=== PATIENT | female | born 1945 | race Caucasian/White ===

== ENCOUNTER 2017-12-17 07:00 | Inpatient (IN) | payer MEDICARE, OTHER ==
--- NOTE | 2017-12-04 13:10 | NUR ---
PATIENT HERE TODAY FOR PREADMISSION APPOINTMENT. PATIENT IS SCHEDULED TO HAVE A RIGHT TOTAL KNEE REPLACEMENT ON 12/17/17. THE PATIENT STATES HER [facility] WILL BE HERE TO TRANSPORT HER HOME AND TO HER APPOINTMENTS. SHE HAS A PRE-OP APPOINTMENT WITH PHYSICAL THERAPY ON Sunday12/07/17 AT THE [facility]. THIS IS WHERE SHE WOULD LIKE TO HAVE PHYSICAL THERAPY AFTER SURGERY. THE PATIENT STATES SHE HAS [address] INTO THE HOME AND A GRAB BAR YOU GO INTO THE HOME. THERE ARE NO STAIRS INSIDE THE HOME. SHE HAS A WALK IN SHOWER. SHE ALSO ALREADY HAS A SHOWER CHAIR, HAND HELD SHOWER HEAD, TOILET SEAT RISER (IF NEEDED) AND A FRONT WHEELED WALKER. PATIENT WAS INSTRUCTED TO BRING HER CPAP MACHINE THE MORNING OF SURGERY AND HER WILL BRING IN HER WALKER WHEN SHE GET TO THE MEDICAL FLOOR. THIS INFORMATION WILL BE FAXED TO DR CUEVAS OFFICE AND TO BENNY PLANNING FOR FURTHER FOLLOW UP.
[~2017-12-17] VITALS: Ht 162.6 cm; Wt 79.4 kg
--- OUTSIDE RECORDS SUMMARY | ~2017-12-17 | XMS | Clinical Summary ---
Demographics + + + | Address | [address] | | | [place] [address] | + + + | Home Phone | | + + + | Preferred Language | Unknown | + + + | Marital Status | Single | + + + | Restorationist Affiliation | Unknown | + + + | Race | Unknown | + + + | Ethnic Group | Other Race | + + + Author + + + | Author | [facility] | + + + | Organization | [facility] | + + + | Address | Unknown | + + + | Phone | Unavailable | + + + Care Team Providers + +------+ + | Care Grades 9 Thru 12 Visiting Teacher Name | Role | Phone | + +------+ + PP | Unavailable | + +------+ + Source Comments LULÚ is fully live on both [facility] and [facility] Allergies Not on File Current Medications Not [...]
[~2017-12-17 07:00] MED LIST: CELEBREX200 MG PO; FLUOXETINE HCL20 M1 PO; LEVOTHYROXINE150 MCG PO; LISINOPRIL20 MG PO; LOVASTATIN40 MG PO; MIRAPEX0.25 MG PO; MULTIVITAMINS1 EAC8 PO; OMEPRAZOLE20 MG PO; TOPROL XL25 MG PO; TRIAMTERENE-HC1 EAC3 PO
--- NOTE | 2017-12-17 09:24 | NUR ---
PT SITTING UP IN BED-ALERT, ORIENTED AND SUPPORTED BY HER . BOTH SEEMED INFORMED AND PREPARED. EXTENDED A BLESSING STAFF CAME TO GET IV STARTED. WILL FOLLOW NEEDED
--- NOTE | 2017-12-17 10:34 | NUR ---
12/17/17 1034 Urmila Stone PATIENT WAKES RAPIDLY, OPENS EYES AND REMOVES ORAL AIRWAY UPON RN INSTRUCTION. NASAL AIRWAY IS REMOVED BY RN. PT DENIES PAIN AND IS UNABLE TO MOVE FEET @ THIS TIME.
--- NOTE | 2017-12-17 11:15 | NUR ---
PT ARRIVED FROM PACU. PT AWAKE AND RESPONDING APPRORIATLY TO QUESTIONS. PT ON 2L O2 NC, WEANED TO 1L. PT DENIES PAIN AND NAUSEA. SPINAL LEVEL T-12. AT BEDSIDE. SCD'S AND GUILLERMO STOCKINGS ON, CRYO CUFF IN PLACE. PT INFOMRED OF PLAN OF CARE AND VOIDING EXPCTATIONS. PT VERBALIZES UNDERSTANDING AND STATES HER QUESTIOSN HAVE BEEN ANSWERED. BED RAILS UP. CALL LIGHT WITHIN REACH.
--- NOTE | 2017-12-17 13:00 | NUR ---
VITALS TAKEN ORDERED POST OP. PT AWAKE IN ROOM. ROOM AIR TRIAL ATTEMPTED. PT DROPS TO 89% ON ROOM AIR. PT REMAINS ON 1 L NC AND MAINTAINS O2 ABOVE 96% ON 1 L NC. PT EATING CLEARS AND DENIES NAUSEA. PT DENIES PAIN. SPINAL LEVEL NOW AT L2. PT ABLE TO MOVE LEFT FOOT SLIGHTLY BUT NOT RIGHT AT THIS TIME. INSTRUCTIONS ON USE OF INCENTIVE SPIROMETER GIVEN. PT DEMONSTRATES USE AND VERBALIZES UNDERSTANDING OF USING THIS DEVICE OFTEN. BED RAISL UP. CALL [facility] WITHIN REACH. WATER REFILLED FOR PT. PT STATES SHE HAS NO ADDITIONAL REQUESTS OR COMPALINTS AT THIS TIME. CRYO CUFF, SCD'S, AND HEEL PROTECTORS REMAIN ON.
--- NOTE | 2017-12-17 13:08 | NUR ---
PT REQUESTS CRACKERS TO EAT. PT TOLERATING PO FUIDS AND JELLO. PT DENIES NAUSEA. CRACKERS AND PUDDING PROVIDED. PT STATES NO ADDITIONAL REQUESTS OR COMPLAINTS AT THIS TIME. CALL LIGHT WITHIN REACH. BED RAILS UP.
--- NOTE | 2017-12-17 13:44 | NUR ---
THIS RN CALLED TO BEDSIDE BY PHYSICAL THERAPIST WHO STATES PTS BLADDER IS LEAKING WITH MOVEMENT. PT REPOSITIONED WITH TWO PERSON ASSIST. AUGUSTINA CARE DONE. DEPENDS APPLIED, AND CHUX PLACED UNDER PT. PT UP TO CHAIR AND WORKING WITH PT. PT DENIES PAIN OR NAUSEA WITH EFFORTS. NO REQUESTS OR COMPLAINTS AT THIS TIME.
--- NOTE | 2017-12-17 14:01 | NUR ---
4TH HOURLY VITALS TAKEN. PT UP IN CHAIR. CRYO CUFF AND 1L O2 BY NC IN PLACE. PT DENIES PAIN AND NAUSEA AND REQUESTS SOME MORE CRACKERS (PROVIDED REQUESTED). VITALS TAKEN. ROOM AIR TRIAL BEGAN. PT MAINTAINING O2 ABOVE 96% ON ROOM AIR AFTER 10 MINUTES. PT LEFT ON ROOM AIR. CALL LIGHT WITHIN REACH. AT CHAIR SIDE. FEET ELEVATED. PT STATES NO ADDITIONAL REQUESTS OR COMPLAINTS AT THIS TIME.
--- NOTE | 2017-12-17 14:15 | NUR ---
PT HAD SMALL INCONT. WHILE WORKING WITH PHYICAL THERAPY, BLADDER SCANNED FOR 367ML, PT REPORTS NO URGE TO VOID AT THIS TIME. WILL MONITOR AND RE-SCAN IN ONE HOUR
--- NOTE | 2017-12-17 15:00 | NUR ---
PATIENT UP TO BSC FROM CHAIR WITH 2 PERSON ASSIST WITH FWW. ICE IN CRYO. CALL BUTTON IN REACH. RN IN ROOM. NO OTHER NEEDS AT THIS TIME.
--- NOTE | 2017-12-17 15:12 | NUR ---
TYLENOL DUE. PT DUE TO VOID. PT UP TO [facility] WITH 2 PERSON ASSIST. CRYO CUFF ICE REFILLED. PT CONTINUES TOD STEPHANE PAIN AND NAUSEA. SPINAL RESOVLED WITH MINIMAL FEELING AND MOVMENT IN BLE. PT TRANSFERED FROM COMOD BACK TO BED, UNABLE TO VOID. BLADDER SCAN FINDS 301ML. PT LEAKS WITH TRANSFERE AND CHUX IS FOUND TO BE WET. NEW CHUX APPLIED. NEW DEPENDS APPLIED. HEEL PROTECTORS IN PLACE. CRYO CUFF IN PLACE. SCD'S REATTACHED. PT REPORTS NO PAIN WITH ACTIVITY. BED RAILS UP. CALL LIGHT WITHIN REACH. AT BEDSIDE.
--- NOTE | 2017-12-17 16:51 | NUR ---
THIS RN TO BEDSIDE FOR AFTERNOON MEDICATIONS. PT REQUESTS TO GET UP TO [facility]. PT TRANSFERED TO [facility] WITH 2 PERSON ASSIST. MEDICATIONS GIVEN ORDERED (SEE MAR). PT TRANSFERED TO CHAIR FOR DINNER, 2 PERSON ASSIST. PT UNABLE TO EMPTY BLADDER. ABLE TO VOID 75ML WITH 267ML REMAINING (OBTAINED WITH BLADDER SCAN. MD NOTIFIED. PT EATING DINNER. CRYO CUFF IN PLACE. PULSE OX IN PLACE. PT CONTINUES TO DENY PAIN AND NAUSEA. AT BEDSIDE. CALL LIGHT WITHIN REACH.
--- NOTE | 2017-12-17 17:11 | NUR ---
MD STATES TO CONTINUE WATCHING PT AT THIS TIME AND ALLOW HER TO CONTINUE TO ATTEMPT TO VOID UNLESS BLADDER SCAN REACHES 500ML AT WHICH TIME ORDER FOR BROWNLEE CATHETER CAN BE ORDERED.
--- NOTE | 2017-12-17 17:39 | NUR ---
PATIENT SITTING UP IN CHAIR. FRESH ICE WATER GIVEN. PATIENT WASHED FACE AND HANDS. ICE IN CRYO. CALL BUTTON IN REACH. NO OTHER NEEDS AT THIS TIME.
--- NOTE | 2017-12-17 17:58 | NUR ---
PT HERE AFTER RIGHT TKA. SPINAL RESOLVED. PT DENIES NAUSEA. PT REPORTED 2/10 BREAKTHROUGH PAIN AT 1800, MORPHINE GIVEN. DIET ADVANCED TO CARDIAC DIET. PT VOIDING INVOLUNTARILY, DEPENDS AND CHUX IN PLACE. MD AWARE AND STATES TO CONTINUE TO MONITOR AND ENCOUAGE PT TO VOID (BROWNLEE ORDER IF MORE THAN 500ML IN BLADDER SCAN). LAST BLADDER SCAN WAS 267ML. CRYO CUFF, SCD'S, PULSE OX, AND GUILLERMO HOSE IN PLACE. DURAMORPH SPINAL COMPLETE TOMORROW MORNING AT 0956, TOWER ATTENDANT ORDERS IN PLACE UNTIL THEN. PIV IN RIGHT FORARM, INFUSING D5 NS +20K AT 125ML/HR. PT WEARS CPAP AT NIGHT.
--- NOTE | 2017-12-17 18:40 | NUR ---
PT CALL LIGHT ON. THIS RN RESPONDS. PT STATES CONCERNS ABOUT NOT RECIVEING HER EVENING MEDS. PHARMACIST CONTACTED AND IS VISITING WITH PT.
[2017-12-17] MEDS ORDERED: METOPROLOL TART25 MG PO (18:44)
--- NOTE | 2017-12-17 20:15 | NUR ---
ASSISTED PATIENT TO USE THE BEDSIDE COMMODE AND BACK TO BED USING WALKER. PATIENT TOLERATED WELL.SCD CRYO HEEL PROTECTOR ANND CONTINUOUS PULSE OXIMETRY ARE BACK ON. CALL LIGHT WITHIN REACH. NO OTHER NEEDS OF THIS TIME.
--- NOTE | 2017-12-17 22:14 | NUR ---
no c/o pain, R knee good cmc, tedhose, scd, heel protector, cryocuff in place. sl patent, Cooperative with assessment, no c/o pain or n/v. Watching tv.
--- NOTE | 2017-12-17 22:43 | NUR ---
up tp bds with fww and one assist, tolerated well, voided dark yellow urine, back to bed, no c/o pain. medicated wtih benadryl 25mg po c/o itching.
--- NOTE | 2017-12-18 00:09 | NUR ---
EYES CLOSED, NO RESP DISTRESS. RESTING, NO FURTHER C/O ITCHING OR PAIN, R KNEE CRYOCUFF, SCDS, HEEL PROTECTOR, GUILLERMO HOSE IN PLACE.
--- NOTE | 2017-12-18 00:42 | NUR ---
medicated with second dose of 25mg of Benadryl per itching, cryocuff kenneth padgett, no c/o pain, good cms
--- NOTE | 2017-12-18 03:19 | NUR ---
PT UPT O BSC WITH ONE ASSIST AND FWW, VOIDED, DARK YELLOW URINE, TOLERATED WELL, BACK TO BED WITH MINIMUM OF ASSIST. RK GOOD CMS, CRYOCUFF, GUILLERMO HOSE, SCDS, HEEL PROTECTOR INPLACE. NO C/O APIN OR N/V, NO FURTHER C/O ITCHING
--- NOTE | 2017-12-18 05:54 | NUR ---
Pt currently awake, up to bsc several times this hisft. uses 1 person assist and fww. tolerated well. has been medicated ATC with scheduled Tylenol 1000mg po. Cont pulse ox in place, izzy hose, heel protectors, scds, and cryocuff to rk. R leg karla wrap dressing in place. good CMS r leg. Lab in room drawing blood. Pt denies c/o n/v, no further c/o itching, no further requests
--- NOTE | 2017-12-18 08:28 | NUR ---
THIS RN CALLED TO ROOM BY MARKETING DEVELOPMENT SPECIALIST BECAUSE PT IS REPORTING PAIN. PT RATES HER PAIN AT 4"/10 AND CLIMBING" (SEE MAR FOR MEDICATION GIVEN). PT UP IN RECLINER AND WORKING WITH MARKETING DEVELOPMENT SPECIALIST'S. PT REPORTS NO OTHER REQUESTS OR COMPLAINTS AT THIS TIME. CALL LIGTH WITHIN REACH.
--- NOTE | 2017-12-18 10:15 | NUR ---
MORNING ASSESSMENT DUE. PT REPORTS IMPROVEMENT IN HER PAIN, NOW / BUT IS CONCERNED ABOUT IT COMEING BACK DURING PHYSICAL THERAPY. MEDCIATIONS GIVEN (SEE MAR). PAIN MEDICATION GIVEN IN ANTICIPATION OF PHYSICAL THERAPY. PT DENIES NAUSEA AND ITCHING. PT VOIDING WELL AND TOELRATING PO WITHOUT ISSUE. PT UP TO RECLINER. FEET ELVATED. CRYO CUFF IN PLACE. NEW ICE IN CRYO CUFF. MORNING ASSESSMENT DONE. METOPROLOL AND HYDROCHLOROTHIAZIDE HELD R/T BP OF 100/45 (58) AND HR OF 60 (REGULAR RATE AND RHYTHEM). PT REQUESTS A SHOWER. PLAN MADE FOR SHOWER. PT STATES SHE HAS NO ADDITIONAL REQUESTS OR COMPLAINTS AT THIS TIME. CALL LIGHT WITHIN REACH.
--- NOTE | 2017-12-18 10:45 | NUR ---
INFOMRED OF HELD MEDICATIONS. STATES THIS DECISION IS CORRECT FOR NOW AND TO CONTINUE TO MONITOR VITAL SIGNS
--- NOTE | 2017-12-18 11:04 | NUR ---
PT CALL LIGHT ON. ARTIFICIAL FLY TIER RESPONDS TO HELP PT BACK FROM REST ROOM. THIS RN RESPONDS WELL. PT REPORTS INCREASING PAIN WITH MOVEMENT NOW 01/29. PT REQUESTS TO TITRATE PAIN MEDICATION UP TO MAXIMUM DOSE. ADDITIONAL 5MG OF OXYCODONE GIVEN (SEE MAR). PT BACK TO CHAIR. CRYOCUFF IN PLACE. WATER PROVIDED. NOW AT BEDSIDE. PT STATES SHE HAS CHANGED HER MIND AND WOULD PREFER TO WAIT TO SHOWER BACKED ON RN RECCOMENDATIONS TO KEEP WOUND DRY AND FOR CONVIENCE. PT STATES SHE HAS NO ADDITIONAL REQUESTS OR COMPLAINTS AT THIS TIME. FOCUSED ASSESSMENT DONE. CALL LIGHT WITHIN REACH. FEET ELEVATED.
--- NOTE | 2017-12-18 11:14 | NUR ---
VITALS TAKEN. BP NOW 143/64 (84), HR 55. INFOMRED. WOUND ASSESSMENT AND CMS CHECK PERFOMRED. DRESSING CDI. CRYO CUFF IN PLACE. CMS WNL.
--- NOTE | 2017-12-18 11:23 | NUR ---
MD STATES TO GIVEN HCTZ NOW BUT CONTINUE TO HOLD METOPROLOL R/T LOW HR OF 55. MEDICATION GIVEN ORDERED (SEE MAR). PT UP WITH PT WALKING IN THE PEÑA. NO REQUESTS OR COMPLAINTS AT THIS TIME.
--- NOTE | 2017-12-18 13:10 | NUR ---
THIS RN INFORMED BY ANOTHER RN (PRIYA HURTADO), THAT PT CONTINUES TO REPORT 4/10 PAIN THAT IS NOT TOLERABLE. MD CALLED. MD ORDERS ADDITIONAL PAIN COVERAGE. ORDER PLACED AND PHARMACY CONTACED.
--- NOTE | 2017-12-18 13:28 | NUR ---
PLACED HOLD ON SCHEDULED TYLENOL FOR NOW, UNTIL ABLE TO ADDRESS WITH DUE TO TYLENOL IN CAVALIER WILL EXCEED MAX DAILY DOSE TOTAL.
--- NOTE | 2017-12-18 13:50 | NUR ---
PT REPORTING ITCHING. INFOMRED. ORDER PLACED.
--- NOTE | 2017-12-18 13:57 | NUR ---
PT LAYING IN BED, RESTING UP FOR P.T. JUST STAYED A MOMENT, SAID SHE SLEPT WELL, BUT WAS ITCHING FROM ANESTHESIA. PT HAS RECEIVED BENEDRYL, I TOLD HER I WOULD LET HER RN KNOW. EXTENDED A BLESSING, GAVE INFO TO PRIYA SPRING.
--- NOTE | 2017-12-18 14:04 | NUR ---
PATIENT RELAXING IN BED, IN ROOM. VITALS DONE, CRYO REFILLED. PATIENT IS ITCHY, RN PEEKED IN TO TALKM TO PATIENT ABOUT BENEDRYL. CALL LIGHT IN REACH. NO OTHER NEEDS.
--- NOTE | 2017-12-18 14:42 | NUR ---
BENEDRYL ORDER VERIFIED BY PHARAMCY. BROUGHT TO PT WHO CONTINUES TO REPORT ITCHING. MEDICATION GIVEN (SEE MAR) PT REQUESTS ASSISTANCE WITH USING RESTROOM. PT TRANSFERED TO TOILET/COMODE WITH STAND BY ASSIST. PT VOIDS WITHOUT DIFFICULTY AND TRANSFERES BACK TO CHAIR WITH OUT INCIDENT. CRYO CUFF REAPPLIED. BELONGING AND CALL LIGHT WITHIN REACH. PT WORKING ON PHONE. NO ADDITIONAL REQUESTS OR COMPLAINTS AT THIS TIME.
--- NOTE | 2017-12-18 15:50 | NUR ---
PT RETURNED FROM WORK WITH PHYSICAL THERAPY. ASSESSMENT AND PAIN MEDICATION DUE. PT REPORTS 3/10 PAIN AND DENIES NAUSEA. PT VOIDING WELL AND AMBULATING WITH ONE PERSON STAND BY ASSIST AND MINIMAL DIFFICULTY. PAIN MEDICATION TIMES WRITTEN ON WHITE BOARD FOR PT TO FOLLOW ALLONG WITH WHEN ADDITIONAL MEDICATION CAN BE TAKEN. MEDICATION GIVEN (SEE MAR). PT BACK TO CHAIR. CRYO CUFF, SCD'S AND GUILLERMO HOSE IN PLACE. HEAL PROTECTORS OFF AT THIS TIME BECUASE HEALS HANG OF END OF FEET REST. PT WORKING ON PHONE. NO REQUESTS OR COMPLAINTS AT THIS TIME. ZECHARIAH LIGHT WITHIN REACH. AT BEDSIDE.
--- NOTE | 2017-12-18 16:44 | NUR ---
PATIENT IS VERY HAPPY HE FINALLY HAD A LG BM. THIS EXTRUSION DIE CORRECTOR 1 PERSON ASSIST FOR 2 LAPS AND BACK TO BED. DR QUAN IN TO SEE PATIENT. CALL LIGHT IN REACH.
--- NOTE | 2017-12-18 17:34 | NUR ---
PT ADVANCING IN CARE TODAY. PT REPORTS 1-5/10 PAIN, PRN PAIN MEDICATION GIVEN. PT DENIES NASUEA AND VOIDS WITHOUT ISSUE. PT REPORTS ITCHING, PRN BENADRYL GIVEN. PT 1 PERSON STAND BY ASSIST WITH FWW. PT AMBULATED WITH PHYSICAL THERAPY X2 AND ALSO IN ROOM. PT ADHERING TO CARDIAC DIET. CPAP USED AT NIGHT. CRYO, SCD'S, GUILLERMO HOSE. HEEL PROTECTORS IN PLACE. DRESSING CDI. METOPROLOL HELD TODAY R/T LOW BP AND HR. PT VERBALIZES UNDERSTANDING OF PLAN AND IS PARTICIPATING IN CARE.
--- NOTE | 2017-12-18 17:50 | NUR ---
PATIENT SITTING IN CHAIR FINISHING DINNER. IN ROOM. 1 PERSON ASSIST TO BATHROOM AND BACK TO BED. VITALS I/O'S DONE. SCD'S ON CRYO FILLED CALL LIGHT IN REACH. NO OTHER NEEDS AT THIS TIME.
--- NOTE | 2017-12-18 17:55 | NUR ---
PT LIGHT ON. PT REQUESTS PAIN MEDICATION FOR 4/10 PAIN IN RIGHT KNEE. PT STATES SHE HAS BEEN DOING HER "QUAD EXERCISES." NORCO GIVEN (SEE MAR). PT IN BED WATCHING TV AND RESTING. BED RAILS UP. CALL LIGHT WITHIN REACH. CRYO CUFF, SCD'S, GUILLERMO VICTORINA, AND HEEL PROTECTORS IN PLACE. PT STATES NO ADDITIONAL REQUESTS OR COMPLAINTS AT THIS TIME.
--- NOTE | 2017-12-18 18:41 | NUR ---
PT CALL LIGHT ON. PT REPORST 5/10 WORSENING PAIN, 3/10 BEING TOLERABLE. PT REPORTS "I NODDED OFF TO SLEEP AND THE PAIN WOKE ME UP." MD CALLED. MD STATES TO INCREASE NORCO DOSE TO 1-2 TABLETS INSTEAD OF 1 Q 4HOURS PRN. ORDER CHANGED IN DEC. PHARMACY CONTACTED. 2ND TABLET OF NORCO GIVEN. PT STATES "THANKS" FOR ACTION TAKEN. PT RESTING IN BED. NO ADDITIONAL REQUESTS OR COMPLAINTS AT THIS TIME. BED RAILS UP. CALL LIGHT WITHIN REACH. CRYO CUFF, SCD'S, GUILLERMO HOSE.AND HEAL PROTECTORS IN PLACE.
--- NOTE | 2017-12-18 19:15 | NUR ---
BEDSIDE REPORT RECEIVED FROM PRIYA SPRING. PT AWAKE IN BED, STATES PAIN IS 4/10 AT THIS TIME. DRESSING ON RIGHT KNEE CLEAN DRY AND INTACT, CRYO CUFF ON, SCDS, GUILLERMO HOSE, HEEL PROTECTORS IN PLACE. DISCUSSED PAIN MANAGEMENT GOAL 3/10. CALL LIGHT IN REACH. NO ADDITIONAL REQUESTS, LIGHTS OFF IN ROOM.
--- NOTE | 2017-12-18 20:25 | NUR ---
PT ASSESSMENT COMPLETE, DRESSING CLEAN DRY AND INTACT, NO DRAINAGE OR SHADOWING NOTED ON MEPILEX, JIGNESH WRAP, GUILLERMO HOSE, HEEL PROTECTORS, CRYO CUFF AND SCDS IN PLACE. LUNGS CLEAR THROUGHOUT ALL LOBES, BOWEL TONES ACTIVE X 4. PT DENIES NAUSEA. PT RATES PAIN IN RIGHT KNEE 5/10 AT THIS TIME, ADMINISTERED PRN PO OXYCODONE 10 MG AT THIS TIME. PT C/O ITCHING, PRN BENADRYL ADMINISTERED. BP 102/54 (66), HR 61, METOPROLOL HELD AT THIS TIME. PT HAS CALL LIGHT, PERSONAL SUPPLIES IN REACH.
--- NOTE | 2017-12-18 23:05 | NUR ---
PT SLEEPING AT THIS TIME, CPAP ON, BREATHING NON-LABORED. LIGHTS OFF IN ROOM.
--- NOTE | 2017-12-18 23:30 | NUR ---
CALL LIGHT ANSWERED, PT ASSISTED BY PRIYA PARIKH TO RESTROOM FOR 900 ML VOID. PT C/O 3-01/29 PAIN IN RIGHT KNEE, PRN NORCO ADMINISTERED AT THIS TIME. ICE IN CRYO CUFF REFILLED. PT GIVEN CRACKERS W PAIN PILL. NO ADDITIONAL REQUESTS. CALL LIGHT IN REACH.
--- NOTE | 2017-12-19 00:10 | NUR ---
ANSWERED PT CALL LIGHT, ADMINISTERED PRN OXYCODONE 10 MG FOR 3-4/10 PAIN IN RIGHT KNEE, PT IS ALERT, ORIENTED. NO ADDL REQUESTS AT THIS TIME, CALL LIGHT IN REACH, PERSONAL SUPPLIES, CPAP NEXT TO PT.
--- NOTE | 2017-12-19 02:22 | NUR ---
ASSISTED PT TO RESTROOM W FWW, SBA FOR VOID. PT RATES PAIN 7/10 W MOVEMENT, 4/10 AT REST. ADMINISTERED 1 PRN PO NORCO FOR PAIN. CSM INTACT BLE, BUE. CRYO CUFF ON RIGHT KNEE. DRESSING CLEAN DRY AND INTACT. LUNGS CLEAR THROUGHOUT ALL LOBES. BOWEL TONES ACTIVE X 4, PT STATES SHE IS PASSING GAS. PT GIVEN ICE WATER, SCDS, GUILLERMO HOES, HEEL PROTECTORS IN PLACE. CALL LIGHT IN REACH, LIGHTS OFF IN ROOM.
--- NOTE | 2017-12-19 02:52 | NUR ---
BROUGHT PT PAIN MEDS, SHE IS REQUESTING TO STAY ON TOP OF PAIN MEDS TO KEEP IT UNDER CONTROL. PT DENIES FURTHER NEEDS AT THIS TIME.
--- NOTE | 2017-12-19 06:00 | NUR ---
ASSISTED PT UP TO BATHROOM, PAIN WHEN SHE MOVES BUT ONCE IN BED, AND SETTLED, SHE RATES HER PAIN 2/10. INCREASES WHEN MOVING THE LEG TO ABOVE A 5, STATES PAIN IS IN RIGHT THIGH AND BEHIND RIGHT KNEE. NEEDED ASSISTANCE TO LIFT LEG IN AND OUT OF BED. CRYCO/SCD/HEEL PROTECTORS IN PLACE, WELL AIDAN GUILLERMO HOSE.
--- NOTE | 2017-12-19 06:26 | NUR ---
PT PAIN WELL MANAGED W PRN OXYCODONE PRN NORCO. PT CONTINUES TO RECEIVE PRN BENADRYL FOR ITCHING. PT UP TO RESTROOM WITH SBA AND FWW, STEADY ON FEET. NO DIZZINESS NOTED. CSM INTACT BLE. CRYO CUFF, SCDS, HEEL PROTECTORS AND GUILLERMO HOSE IN PLACE THROUGHOUT SHIFT, DRESSING CLEAN DRY AND INTACT.
--- NOTE | 2017-12-19 06:38 | NUR ---
ANSWERED CALL LIGHT, PT C/O 01/29 PAIN IN RIGHT LEG. ADMINISTERED PRN NORCO. PRN BENADRYL. PT HAS CALL LIGHT IN REACH.
--- NOTE | 2017-12-19 07:47 | NUR ---
REPORT RECIEVED FROM PRIYA MAXWELL. PT AWAKE AND SITTING UP IN CHAIR. RATES PAIN 3\10. STATES THAT SHE WOULD LIKE THE MEDS SOON POSSIBLE DURING DAY TO STAY ON TOP OF PAIN. HAS NOT HAD A BM SINCE ADMIT. ADVISED TO HAVE ALL PRN STOOL SOFTENERS TODAY. PT AGREED. FILLED WATER CUP.
--- NOTE | 2017-12-19 07:56 | NUR ---
PATIENT SITTING UP IN CHAIR. 1PERSON ASSIST TO BATHROOM AND BACK TO CHAIR. WARM BLANKET AND FRESH ICE WATER. STUDENT NURSE IN ROOM AND DR QUAN IN TO TALK TO PATIENT. PATIENT IN MORE PAIN TODAY. CALL LEYDA IN REACH.
--- NOTE | 2017-12-19 09:34 | NUR ---
0815 ADMINISTERED OXYCODONE 10 MG PO PER PATIENTS COMPLAINT OF 3-4/10 PAIN R KNEE. PT ALERT ORIENTED WITH NO ADDITIONAL REQUESTS AT THIS TIME.
--- NOTE | 2017-12-19 10:03 | NUR ---
PT UP TO THE RESTROOM, CONTINUES TO BE VERY PAINFUL. WILL CALL AND ALERT. WHEN IN BED 4\10, 8\10 WHEN UP AND TEARFUL.
--- NOTE | 2017-12-19 10:08 | NUR ---
SCHEDULED DICLOFENAC GIVEN BY PRIYA OLIVEIRA. PT UP TO BATHROOM W/FWW. SBA. PT GOT TEARY AND REPORTED PAIN 8/10 WITH MOVEMENT. WILL CONTINUE TO REASSESS. GOAL IS TO GET PAIN UNDER CONTROL TODAY. PT IS ALERT AND DENIES OTHER NEEDS AT THIS TIME. CALL LIGHT IN REACH.
--- NOTE | 2017-12-19 10:18 | NUR ---
CALLED DR CUEVAS REGARDING PAIN CONTROL. HE DC'D STEPHANECO AND ORDERED DILAUIDID 4-8MG Q4PRN. AWAITING VERIFICATION THEN WILL GIVE IT. O
--- NOTE | 2017-12-19 10:20 | NUR ---
0900 aDMINISTERED PT'S MORNING MEDS, PT ABLE TO TAKE MEDS INDEPENDENTLY. AFTER MED ADMINISTRATION PT ASSISTED FROM BED SIDE CHAIR TO BED. PT EXPERIENCED AN INCREASE IN PAIN WITH AMBULATION EVIDENCED BY TEARS AND GRIMACING. PT STATED THAT HER PAIN WAS "AT LEAST AN 8" OUT OF 10. WHILE PT WAS SITTING IN BED, P.T. ARRIVED FOR THERAPY. PT DENIED THERAPY AT THIS TIME R/T INCREASED PAIN. PT STATES THEY WILL COME BACK LATER. PT CURRENTLY RESTING IN BED. SCD'S AND CRYO CUFF PLACED. PT DENIES ANY FURTHER REQUESTS AT THIS TIME.
--- NOTE | 2017-12-19 11:00 | NUR ---
ASSISTED RN STUDENT WITH REPLACING DRESSING. PT TOLERATED FAIRLY WELL, A LITTLE TEARFUL WITH LIFTING OF LEG. RN BUILDING. WILL BE IN SHORTLY TO DO THER. PT AWARE.
--- NOTE | 2017-12-19 11:22 | NUR ---
PT WALKING WITH STUDENT NURSE AND PT. CRYO FILLED. TRASH EMPTIED.
--- NOTE | 2017-12-19 11:39 | NUR ---
PT UP WALKING IN PEÑA WITH PHYSICAL THERAPY.
--- NOTE | 2017-12-19 11:47 | NUR ---
PT BACK FROM PHYSICAL THERAPY. PT SITTING UP IN BED WITH LUNCH. TALKING ON PHONE.
--- NOTE | 2017-12-19 13:00 | NUR ---
PT IS RESTING IN BED. APPEARS COMFORTABLE. DENIES OTHER NEEDS AT THIS TIME.
--- NOTE | 2017-12-19 14:13 | NUR ---
1330 ADMINISTERED NUCYNTA 100 MG PO. PT EDUCATED ON NUCYNTA INCLUDING MED TYPE AND SIDE EFFECTS. PT COMPLAINED OF PAIN LEVEL 5/10 IN HER RIGHT KNEE AND QUAD. ALSO ADMINISTERED 250 MG PO OF COLACE FOR CONSTIPATION RELIEF. ASSISTED PT TO BATHROOM WITH 1 PERSON AMIE AND FRONT WHEELED WALKER. PT VOIDED 900 MLS OF CLEAR YELLOW URINE. PT WAS THEN ASSISTED TO PATIENTS BED SIDE CHAIR. PT CURRENTLY RESTING IN BED SIDE CHAIR VISITING WITH . NO FURTHER REQUESTS AT THIS TIME.
--- NOTE | 2017-12-19 14:34 | NUR ---
PT SITTING IN CHAIR W/CRYO CUFF ON AND WAITING FOR P.T.PAIN HAS BEEN SOMEWHAT OF AN ISSUE-STAFF WORKING TO GET THIS MORE UNDER CONTROL. VERY POSITIVE IN HER APPROACH TO REHAB. EXTENDED A BLESSING, WILL CONTINUE TO FOLLOW
--- NOTE | 2017-12-19 15:02 | NUR ---
pt sitting in chair eyes closed, in room. cryo filled,fresh ice water. call light in reach no other needs, pt resting.
--- NOTE | 2017-12-19 15:42 | NUR ---
PT UP WORKING WITH PHYSICAL THERAPY.
--- NOTE | 2017-12-19 18:25 | NUR ---
PATIENT RELAXING IN BED,WATCHING TV. VITALS,I/O'S DONE. CRYO FILLED. CALL LIGHT IN REACH. NO OTHER NEEDS.
--- NOTE | 2017-12-19 19:05 | NUR ---
RECEIVED REPORT FROM RN. PATIENT IS RESTING IN BED, BREATHING IS EVEN AND UNLABORED. REPORTS 5/10 PAIN, PRN DILAUDID GIVEN PER EMAR. DENIES FURTHER NEEDS. CALL LIGHT WITHIN REACH.
--- NOTE | 2017-12-19 20:10 | NUR ---
PATIENT RESTING COMFORTABLY IN BED, BREATHING IS EVEN AND UNLABORED. DENIES NEEDS AT THIS TIME. REPORTS 3/10 PAIN IN RIGHT LEG AT INCISION SITE, SCHEDULED NUCYNTA GIVEN. ASSESSMENT DONE. CALL LIGHT WITHIN REACH.
--- NOTE | 2017-12-19 21:39 | NUR ---
PATIENT RESTING COMFORTABLY IN BED, BREATHING IS EVEN AND UNLABORED. FLACC SCORE OF 0. CALL LIGHT WITHIN REACH.
--- NOTE | 2017-12-19 22:55 | NUR ---
PATIENT ASSISTED TO BATHROOM WITH SBA/FWW. TOLERATED AMBULATION WELL WITHOUT SIGNIFICANT INCREASE IN PAIN. REPORTS 4/10 PAIN IN RIGHT KNEE, PRN DILAUDID GIVEN. DENIES FURTHER NEEDS. CALL LIGHT WITHIN REACH, ALL ORDERS IN PLACE.
--- NOTE | 2017-12-19 23:15 | NUR ---
PATIENT RESTING COMFORTABLY IN BED, BREATHING IS EVEN AND UNLABORED. O2 SATURATION IS 95% ON 2L O2 VIA NC. PULSE IS 98 ON TELE. DENIES NEEDS AT THIS TIME. TEMPERATURE OF 99.8 NOTED, TYLENOL GIVEN. CALL LIGHT WITHIN REACH.
--- NOTE | 2017-12-20 00:08 | NUR ---
PATIENT RESTING COMFORTABLY IN BED, BREATHING IS EVEN AND UNLABORED. FLACC SCORE OF 0. CALL LIGHT WITHIN REACH.
--- NOTE | 2017-12-20 01:09 | NUR ---
PATIENT RESTING COMFORTABLY IN BED, BREATHING IS EVEN AND UNLABORED. FLACC SCORE OF 0. CALL LIGHT WITHIN REACH.
--- NOTE | 2017-12-20 03:15 | NUR ---
PATIENT RESTING COMFORTABLY IN BED, BREATHING IS EVEN AND UNLABORED. REPORTS 4/10 PAIN IN RIGHT KNEE, SCHEDULED NUCYNTA GIVEN, 4 MG PRN DILAUDID GIVEN. DENIES FURTHER NEEDS. ASSESSMENT DONE, CRYOCUFF REFILLED. CALL LIGHT WITHIN REACH.
--- NOTE | 2017-12-20 04:20 | NUR ---
PATIENT RESTING COMFORTABLY IN BED, BREATHING IS EVEN AND UNLABORED ON CPAP. FLACC SCORE OF 0. CALL LIGHT WITHIN REACH.
--- NOTE | 2017-12-20 04:22 | NUR ---
PATIENT'S NIGHT WAS UNEVENTFUL. SHE HAS BEEN RESTING COMFORTABLY IN BED THROUGHOUT SHIFT. VSS, URINE OUTPUT QS. PAIN HAS BEEN WELL CONTROLLED WITH PROVIDED PAIN MEDICATIONS. PATIENT HAS REMAINED ALERT AND ORIENTED. LUNGS HAVE FINE CRACKLES IN BASES, CLEARED WITH IS. ENCOURAGED IS USE. PATIENT HAS NOT HAD BOWEL MOVEMENT, BOWEL TONES ARE ACTIVE, NON-DISTENDED. DRESSING REMAINS CDI, CMS INTACT. PATIENT IS TOLERATING AMBULATION WELL WITH SBA/FWW. NO SIGNIFICANT INCREASES IN PAIN WITH AMBULATION, GAIT HAS BEEN STEADY. NO ACUTE CHANGES FROM BEGINNING OF SHIFT.
--- NOTE | 2017-12-20 05:37 | NUR ---
PATIENT RESTING COMFORTABLY IN BED, BREATHING IS EVEN AND UNLABORED. DENIES NEEDS AT THIS TIME, DENIES NEED FOR PAIN MEDICATION. CALL LIGHT WITHIN REACH.
--- NOTE | 2017-12-20 05:41 | NUR ---
PT CALLED TO USE THE BATHROOM. NEEDED HELP GETTING LEG OFF BED, BUT WAS ABLE TO PUT HER RIGHT LEG INTO BED WITHOUT HELP. ONCE IN BED, STATES PAIN IS GOOD AND DENIED NEED FOR PAIN MED. SCD'S AND GUILLERMO HOSE IN PLACE, CALL LIGHT WITH IN REACH. LAB IN ROOM DRAWING BLOOD.
--- NOTE | 2017-12-20 07:26 | NUR ---
RECIEVED REPORT FROM LOAD BLOCKER NURSE. PATIENT SLEEPING IN BED. HOME CPAP IN PLACE. CALL LIGHT IN REACH.
[2017-12-20] MEDS ORDERED: XARELTO10 MG PO (08:27)
[2017-12-20] MEDS ORDERED: NUCYNTA50 MG PO (08:28)
[2017-12-20] MEDS ORDERED: MIRALAX17 GM PO (08:28)
[2017-12-20] MEDS ORDERED: HYDROMORPHONE HC4 MG PO (08:28)
[2017-12-20] MEDS ORDERED: PANTOPRAZOLE SO40 MG PO (08:29)
--- NOTE | 2017-12-20 08:29 | NUR ---
PATIENT RESTING UP IN CHAIR. MD IN TO ASSESS. PATIENT RATES PAIN 2/10. DRESSING TO R KNEE C/D/I. TEDS IN PLACE. CRYO CUFF TO R KNEE. NO PEDAL EDEMA, PALPABLE PEDAL PULSES. CRACKLES HEARD IN LUNG BASES, ENCOURAGED USE OF INCENTIVE SPIROMETER. PATIENT DEMONSTRATED PROPER USE. HR REGULAR, HYPERACTIVE BOWEL SOUNDS. PATIENT PASSING "LOTS OF GAS." MIRALAX ADMINISTERED, NO BM SINCE DAY BEFORE SURGERY. REMOVED SCOPE PATCH. HELD HCTZ FOR A SYSTOLIC OF 105. PATIENT DENIES NEEDS. WOULD LIKE TO SHOWER AT SOME POINT TODAY. CALL LIGHT IN REACH.
--- NOTE | 2017-12-20 09:13 | NUR ---
patient ambulating hallway with physical therapy.
--- NOTE | 2017-12-20 10:04 | NUR ---
SHALLOT CLEANER ASSISTING PATIENT WITH SHOWER.
--- NOTE | 2017-12-20 10:31 | NUR ---
PATIENT TOOK A SHOWER. BRUSHED HER OWN TEETH. PUT GUILLERMO HOSE ON. GETTING READY TO GO HOME.
--- NOTE | 2017-12-20 10:42 | NUR ---
FAXED CHART NOTES TO [facility] OP PT TO INCLUDE FACESHEET, ORDER, H AND P, PROG NOTES, PT AND OT EVAL AND NOTES. RECIEVED CONFIRMATION OF FAX. ALSO TALKED TO ALINA AT [facility] OP PT AND SHE STATED THEY RECIEVED THE FAX.
--- NOTE | 2017-12-20 10:50 | NUR ---
REIVEWED D/C PAPERWORK WITH PATIENT. SHE DENIES QUESTIONS AT THIS TIME.
--- NOTE | 2017-12-20 13:16 | NUR ---
PT GETTING READY FOR DC. STAFF IN TO ASSIST, EXCITED AND EXPRESSED HER APPRECIATION FOR THE CARE SHE HAS RECEIVED. SHARED A BLESSING WITH HER, WILL FOLLOW NEEDED
--- NOTE | 2017-12-31 08:37 | OR ---
[facility] [address] [place], [place] [address] Signed DATE OF OPERATION: 12/17/2017 SURGEON: Yisel Mcintyre MD PREOPERATIVE DIAGNOSIS: Degenerative joint disease, right knee. POSTOPERATIVE DIAGNOSIS: Degenerative joint disease, right knee. PROCEDURE PERFORMED: Right total knee arthroplasty with computer navigation. HASH SLINGER: LOGAN Harkins. Jackie was present and critical for positioning, retraction, and wound closure. ANESTHESIA: Spinal with sedation. TOURNIQUET TIME: 54 minutes. IMPLANTS: Ricardo triathlon size 4 femur, 3 tibia, 11 mm insert, 32 mm patella. BRIEF HISTORY: Urvashi is a 72-year-old female with progressive worsening of her osteoarthritis. She had undergone nonoperative treatment without substantial relief. Risks, benefits, and alternatives were discussed when she reached medical clearance. DESCRIPTION OF PROCEDURE: She was taken to the operating room. After adequate anesthesia, she was placed on operating table. All downside pressure points well padded. Hip bump was placed and the leg was placed in well-padded proximal thigh tourniquet. The leg was then prepped and draped in standard sterile fashion and exsanguinated using Esmarch bandage. Tourniquet inflated to 250 mmHg. Standard anterior approach through curved incision was taken through skin and subcutaneous tissue. Median parapatellar arthrotomy was performed. The infrapatellar fat pad was excised and the MCL was elevated to sleeve around the posterior medial corner. The menisci were removed. The ACL was transected. PCL was Electronically Signed By: YISEL MCINTYRE MD 12/31/17 0837 PATIENT NAME: URVASHI LEDEZMA OPERATIVE REPORT DATE OF : 49 REPORT #: [id number] PHYSICIAN: YISEL MCINTYRE MD PCP: ARIANNA FLORES REPORT IS CONFIDENTIAL AND NOT TO BE RELEASED WITHOUT AUTHORIZATION [facility] [address] [place], [place] [address] Signed found to be intact. The knee was flexed. Navigation guide was pinned to the distal femur and the femur was registered with the computer. The cutting block was then pinned in neutral alignment and the distal femoral cut was made. The distal femur sized to a 4. 4 cutting block was pinned in alignment with epicondylar axis. The anterior, posterior, and chamfer cuts were made. The osteophytes were removed. The attention was turned to proximal tibia. The navigation guide was pinned to the proximal tibia and the tibia was registered with the computer. The cutting block was then pinned in neutral alignment and the proximal tibia cut was made with care taken to protect the patellar tendon and MCL. The osteophytes were removed off the femur and the posterior release was performed. Flexion-extension gaps were sized and found to be symmetric at 11 mm. The trials were then positioned. Knee was extended and nicely loaded. The stability was excellent throughout. The patella was then cut, sized, and drilled for 32 patella. The knee was flexed and the distal femur was drilled. The proximal tibia was finished using the keel punch. All bone surfaces were pulse lavaged and packed with dry Ray-Maria Del Rosario. Cement was mixed and reached proper consistency, and placed all implants on bone surfaces. Tibia was impacted in position first and the remaining cement was removed. The polyethylene was snapped into position. The femur was impacted and again any excess cement was removed. The knee was extended and nicely loaded. The patella was clamped and any excess cement was removed. The cement was allowed to harden. Once it hardened sufficiently, the knee was flexed. The remaining cement was removed using osteotomes. The knee was pulse lavaged at intervals and total of 2 L antibiotic irrigation was used. The periarticular soft tissues were injected with 100 mL ropivacaine, Toradol mixture. The arthrotomy was closed using #2 Stratafix, subcutaneous tissue with 0 Stratafix and skin with fan. The knee was dressed with Mepilex Ag dressing, ABD, and Jamey wrap. She tolerated the procedure well. All sponge, needle, and instrument counts were correct. Yisel Mcintyre MD BA/MODL /[id number] Copies: Electronically Signed By: YISEL MCINTYRE MD 12/31/17 0837 PATIENT NAME: URVASHI LEDEZMA OPERATIVE REPORT DATE OF : 49 REPORT #: [id number] PHYSICIAN: YISEL MCINTYRE MD PCP: ARIANNA FLORES REPORT IS CONFIDENTIAL AND NOT TO BE RELEASED WITHOUT AUTHORIZATION [facility] [address] [place] [id number] Signed ~ Electronically Signed By: YISEL MCINTYRE MD 12/31/17 0837 PATIENT NAME: URVASHI LEDEZMA OPERATIVE REPORT DATE OF : 49 REPORT #: [id number] PHYSICIAN: YISEL MCINTYRE MD PCP: ARIANNA FLORES REPORT IS CONFIDENTIAL AND NOT TO BE RELEASED WITHOUT AUTHORIZATION
--- NOTE | 2017-12-31 08:37 | DS ---
[facility] [address] [facility] [place] [address] Signed ADMISSION DATE: 12/17/2017 DISCHARGE DATE: 12/20/2017 ADMISSION DIAGNOSIS: Degenerative joint disease in right knee. DISCHARGE DIAGNOSIS: Degenerative joint disease in right knee. PROCEDURE PERFORMED: Right total knee arthroplasty. BRIEF HISTORY: Urvashi is a 72-year-old female with progressive worsening of arthritis. She had undergone nonoperative treatment without success. Risks and benefits of operative treatment discussed with her and she elected to proceed. Once consent was obtained, she underwent the above-named procedure. She tolerated this well, was taken to the recovery room, and subsequently to orthopedic floor. She was initially placed on oxycodone for her pain control, however, this was insufficient. She was quite tearful even though her physiologic markers were low normal. We then switched her to Nucynta and Dilaudid and has managed her pain and her anxiety quite well. She was kept on DVT prophylaxis of SCDs, TEDs and Xarelto 10 mg daily. She was seen by Physical Therapy, able to participate and do well with the therapy including stairs. She was discharged to home with the above medications. She has physical therapy already scheduled and she will follow up with me in 10-14 days. She will notify me of any problems in the interim. Yisel Mcintyre MD BA/ITALIA /[id number] Copies: Electronically Signed By: YISEL MCINTYRE MD 12/31/17 0837 PATIENT NAME: URVASHI LEDEZMA DISCHARGE SUMMARY DATE OF : 49 REPORT #: [id number] PHYSICIAN: YISEL MCINTYRE MD PCP: ARIANNA FLORES REPORT IS CONFIDENTIAL AND NOT TO BE RELEASED WITHOUT AUTHORIZATION [address] [address] Signed ~ Electronically Signed By: YISEL MCINTYRE MD 12/31/17 0837 PATIENT NAME: URVASHI LEDEZMA DISCHARGE SUMMARY DATE OF : 49 REPORT #: [id number] PHYSICIAN: YISEL MCINTYRE MD PCP: ARIANNA FLORES REPORT IS CONFIDENTIAL AND NOT TO BE RELEASED WITHOUT AUTHORIZATION
== END 2017-12-20 11:25 | disposition home or self-care (01) | DRG 470 ==
LOC: DS 07:00 → MS 10:41
PROVIDERS: ADMIT Specialist
PROC: 0SRC0J9 Replacement of Right Knee Joint with Synthetic Substitute, Cemented, Open Approach (ICD-10-PCS; principal; 2017-12-17 09:15)
DX: M17.11 Unilateral primary osteoarthritis, right knee (principal); G89.18 Other acute postprocedural pain; I47.1 Supraventricular tachycardia; E03.9 Hypothyroidism, unspecified; E78.5 Hyperlipidemia, unspecified; G47.33 Obstructive sleep apnea (adult) (pediatric); G25.81 Restless legs syndrome
CPT/HCPCS: 01402; 36415; 64447; 76942; 80048; 85025; 94762; 97110; 97116; 97162; C1713; C1776; G8978; G8979; J0690; J0735; J1100; J1885; J2250; J2270; J2274; J2405; J2704; J2765; J3010; J7120

== ENCOUNTER 2018-01-04 14:03 | Emergency (ER) | payer MEDICARE, OTHER ==
[~2018-01-04] VITALS: Ht 162.6 cm; Wt 79.4 kg
[~2018-01-04 14:03] MED LIST changes: +HYDROMORPHONE HC4 MG PO; +METOPROLOL TART25 MG PO; +MIRALAX17 GM PO; +NUCYNTA50 MG PO; +PANTOPRAZOLE SO40 MG PO; +XARELTO10 MG PO
--- OUTSIDE RECORDS SUMMARY | 2018-01-04 14:31 | XMS | Clinical Summary ---
Demographics + + + | Address | [address] | | | [place] [address] | + + + | Home Phone | | + + + | Preferred Language | Unknown | + + + | Marital Status | Single | + + + | Sikh Affiliation | Unknown | + + + | Race | Unknown | + + + | Ethnic Group | Other Race | + + + Author + + + | Author | [facility] | + + + | Organization | [facility] | + + + | Address | Unknown | + + + | Phone | Unavailable | + + + Care Team Providers + +------+ + | Care Hims Manager Name | Role | Phone | + +------+ + PP | Unavailable | + +------+ + Source Comments LUL[facility] is fully live on both [facility] and [facility].Formerly [facility] Allergies Not on File Current Medications Not on file Active Problems Not on file Social History + +-------+ +--------+------+ | Tobacco Use | Types | Packs/Day | Years | Date | | | | | Used | | + +-------+ +--------+------+ | Never Assessed | | | | | + +-------+ +--------+------+ + + + | Sex Assigned at | Date Recorded | | | | + + + | Not on file | | + + + Plan of Treatment + + + + + | Health Maintenance | Due Date | Last Done | Comments | + + + + + | INFLUENZA VACCINE | | | | | (FLU SHOT) | 7 | | | + + + + + Results Not on filefrom Last 3 Months"
--- OUTSIDE RECORDS SUMMARY | 2018-01-04 14:31 | XMS | Clinical Summary ---
Demographics + + + | Address | [address] | | | [place] [address] | + + + | Home Phone | | + + + | Preferred Language | Unknown | + + + | Marital Status | Single | + + + | Adventism Affiliation | Unknown | + + + | Race | Unknown | + + + | Ethnic Group | Other Race | + + + Author + + + | Author | [facility] | + + + | Organization | [facility] | + + + | Address | Unknown | + + + | Phone | Unavailable | + + + Care Team Providers + +------+ + | Care Pool Hand Name | Role | Phone | + +------+ + PP | Unavailable | + +------+ + Source Comments LULÚ is fully live on both [facility] and [facility] Allergies Not on File Current Medications Not [...]
== END 2018-01-04 17:30 | disposition home or self-care (01) ==
LOC: ED 14:03
DX: S46.811A Strain of other muscles, fascia and tendons at shoulder and upper arm level, right arm, initial encounter (principal); I10 Essential (primary) hypertension; E03.9 Hypothyroidism, unspecified; E78.00 Pure hypercholesterolemia, unspecified; Z79.899 Other long term (current) drug therapy; Z79.01 Long term (current) use of anticoagulants; Z96.651 Presence of right artificial knee joint; X58.XXXA Exposure to other specified factors, initial encounter
CPT/HCPCS: 36415; 71045; 71260; 80053; 85025; 85379; 85610; 99284; Q9967

== ENCOUNTER 2018-03-23 08:19 | Emergency (ER) | payer MEDICARE, OTHER ==
[~2018-03-23] VITALS: Ht 162.6 cm; Wt 79.4 kg
[2018-03-23] MEDS ORDERED: NORCO 5-325 TA1 EACH PO (09:25)
== END 2018-03-23 09:35 | disposition home or self-care (01) ==
LOC: ED 08:19
DX: M16.12 Unilateral primary osteoarthritis, left hip (principal); M70.72 Other bursitis of hip, left hip; I10 Essential (primary) hypertension; E03.9 Hypothyroidism, unspecified; Z79.899 Other long term (current) drug therapy
CPT/HCPCS: 73502; 99283

== ENCOUNTER 2018-11-25 07:00 | Observation (INO) | payer MEDICARE, OTHER ==
--- NOTE | 2018-11-12 16:37 | NUR ---
PT SCHEDULED FOR LEFT TOAL HIP REPLACEMENT ON 11/25/[address] CUEVAS. PT IS CHECKING TO SEE IF SHE HAS A WALKER FROM PREVIOUS SURGERY BUT WAS REFERRED TO [facility]. PT HAS 2 STEPS INTO HER HOME WITH A HAND RAILING, NO STAIRS REPORTED IN THE HOME. PT HAS A WALK IN SHOWER, A SHOWER CHAIR, A HAND HELD SHOWER HEAD, AND A TOILET SEAT RISER AT HOME. PT REPORTS SHE HAS A CLASS NEXT WEEK SCHEDULED TO GO OVER PHYSICAL THERAPY AND GET SCHEDULE THAT WILL BE THROUGH [facility]. AFTER DISCHARGE, PT HAS AT HOME AND WILL BE HER TRANSPORTATION.
[~2018-11-25] VITALS: Ht 160 cm; Wt 81.7 kg
[~2018-11-25 07:00] MED LIST changes: +BUPROPION XL300 MG PO; +CALCIUM 600 +1 EACH PO; +IRON18 MG PO; +NALTREXONE HCL50 MG PO; +NORCO 5-325 TA1 EACH PO; +ZESTORETIC 20-1 EACH PO
--- NOTE | 2018-11-25 09:46 | NUR ---
PT IS ALERT, ORIENTED AND SUPPORTED BY HER . PT SEEMS RELAXED AND HAD FEW QUESTIONS. PT HAS A TRIP PLANNED THAT IS HER GOAL TO BE READY FOR. PT DID REQUEST PRAYER, WILL FOLLOW NEEDED
--- NOTE | 2018-11-25 12:27 | NUR ---
11/25/18 1227 Jeri Ramirez 1139 PT ARRIVED IN PACU AWAKE WITH NO C/O'S. MARIA R DRSG INTACT TO L HIP AND ABDUCTION SPLINT IN PLACE. 1145 XRAY AT BEDSIDE. PELVIS XRAY DONE. 1150 CRYO CUFF PLACED ON L HIP. 1200 OXYGEN REMOVED. SATS 96-100% ON RA. 1215 TAKING SIPS OF WATER. NO C/O'S.
--- NOTE | 2018-11-25 12:40 | NUR ---
THIS RN TAKING OVER PT CARE- PT HAS JUST ARRIVED TO M/S INTO ROOM 112. VSS. ROOM AIR. PT HAS NO C/O PAIN, N/V OR BREATHING ISSUES/SOB. PICCO DRESSING ON LEFT HIP CDI AND WNL. GUILLERMO HOSE IN PLACE BLE. SCD IN PLACE AND ON. ABDUCTOR PILLOW IN PLACE. PT HAS NO FEELING HIPS DOWN AND UNABLE TO MOVE HER BLE. EDUCATION GIVEN ON SAFETY AND POST OP. LUNGS CLEAR. ACTIVE BOWEL TONES. LAST BM YESTERDAY. A/O X4. PIV IN RIGHT HAND FLUSHES WELL WITH GOOD BLOOD RETURN. PT'S AT BEDSIDE. CALL LIGHT WITHIN REACH. FALL PRECAUTIONS IN PLACE. WILL CONTINUE TO MONITOR.
--- NOTE | 2018-11-25 12:57 | NUR ---
PT TO FLOOR FROM PACU VIA BED, ACCOMPANIED BY PRIYA CUENCA. RECIEVED BEDSIDE REPORT FROM PRIYA CUENCA AT 1220 ON PT'S ARRIVAL TO FLOOR. PT ALERT, ORIENTED, ON RA. DENIED PAIN, PICCO DRESSING TO LEFT HIP C/D/I, GREEN "OK" LIGHT FLASHING.
--- NOTE | 2018-11-25 13:39 | NUR ---
POST OP VS REMAIN STABLE. LEFT HIP DRSG WNL AND CDI. NO FEELING OR VOLUNTARY MOVEMENT IN BLE YET. PT REMAINS PLEASANT, CALM AND COOPERATIVE WITH NO PAIN. PT HAS BEEN DRINKING WATER AND HAD SOME CRACKERS WITHOUT ANY COMPLICATION OR N/V. GUILLERMO HOSE, PILLOW, SCD, AND CRYOCUFF ON AND IN PLACE. CALL LIGHT WITHIN REACH. WILL CONTINUE TO MONITOR.
--- NOTE | 2018-11-25 14:40 | NUR ---
VSS. PT STILL VERY PLEASANT AND COOPERATIVE WITH NO C/O PAIN. SHE STILL HAS NO FEELING IN BLE WELL NO MOVEMENT. HER LEFT HIP MARIA R DRSG REMAINS CDI AND WNL. PT HAS NO NEEDS TO BE MET AT THIS TIME. CALL LIGHT WITHIN REACH. FALL PRECAUTIONS IN PLACE. WILL CONTINUE TO MONITOR.
--- NOTE | 2018-11-25 15:45 | NUR ---
LAST SET OF Q4HR VS TAKEN AND REMAIN STABLE. PT JUST WOKE UP FROM NAP. HER REMAINS AT HER SIDE. ASSESSMENT COMPLETED ON BLE SENSATION/MOVEMENT AND IT IS IMPROVING; PT ABLE TO SLIGHTLY WIGGLE HER LEFT TOES AND HAS TINGLING. RLE STILL NUMB WITH NO MOVEMENT. DENIES ANY NEEDS TO BE MET. CALL LIGHT WITHIN REACH. FALL PRECAUTIONS IN PLACE. WILL CONTINUE TO MONITOR.
--- NOTE | 2018-11-25 16:45 | NUR ---
PT BLADDER SCANNED IT HAS BEEN 4 HOURS SINCE HER ARRIVAL TO THE UNIT AND SHE HAS NOT VOIDED. BLADDER SCAN READ 209 CC URINE IN THE BLADDER. WILL MONITOR FOR A FEW MORE HOURS AND PER ORDER, PLACE BROWNLEE IF BLADDER SCAN >500. PT FEELIGN NUMBNESS/TINGLIGN IN BLE AND IS ABLE TO WIGGLE BOTH OF HER FEET. SHE HAS SEEN NELLIE WITH PT THE LAST HOUR. PT DENIES ANY PAIN. CRYOCUFF, GUILLERMO ALLEN, SCD ALL ON AND IN PLACE. PT'S LEFT HIP REMAINS WNL AND MARIA R DRSG IS CDI/WNL. PT DENIES ANY NEEDS. SHE CONTINUES TO DRINK A LOT OF WATER AND HAS PLACED AN ORDER FOR DINNER. CALL LIGHT WITHIN REACH. FALL PRECAUTIONS IN PLACE. WILL CONTINUE TO MONITOR.
--- NOTE | 2018-11-25 17:23 | NUR ---
PT EATING DINNER AT THIS TIME. VERY PLEASANT, CALM AND COOPERATIVE. NO PAIN. SENSATION AND MOVEMENT/STRENGTH IN BLE SLOWLY RETURNING. CALL LIGHT WITHIN REACH. FALL PRECAUTIONS IN PLACE. WILL CONTINUE TO MONITOR.
--- NOTE | 2018-11-25 18:09 | OR ---
[facility] [address] [facility] [place] [address] Signed DATE OF OPERATION: 11/25/2018 SURGEON: Yisel Mcintyre MD PREOPERATIVE DIAGNOSIS: Degenerative joint disease, left hip. POSTOPERATIVE DIAGNOSIS: Degenerative joint disease, left hip. PROCEDURE PERFORMED: Total hip arthroplasty, left. PILOT PLANT TECHNICIAN: LOGAN Harkins. Jackie was present in critical positioning, retraction, and wound closure. ANESTHESIA: Spinal. BLOOD LOSS: 200 mL. IMPLANTS: Secur-Fit advanced size 7 with the 52 mm cup and a -2.5 head. BRIEF HISTORY: Urvashi is a 73-year-old female with progressive worsening of osteoarthritis in her hip. She had undergone nonoperative treatment without substantial relief. Risks and benefits of operative treatment were discussed with her and she elected to proceed. DESCRIPTION OF PROCEDURE: Once consent was obtained, she was taken to the operating room. After adequate anesthesia, she was placed in right lateral decubitus position. The left hip was then prepped and draped in a standard sterile fashion after placing an axillary roll. All downside pressure points are well padded as well. The hip was approached through a 6 inch incision centered over the trochanter carried through the skin and subcutaneous tissue. IT band was split longitudinally and the vastus lateralis was split from the tip of the trochanter distally and elevated subperiosteally around the level of lesser trochanter. She was fairly oozy throughout the procedure. The Aquamantys was used to Electronically Signed By: YISEL MCINTYRE MD 11/25/18 1809 PATIENT NAME: URVASHI LEDEZMA OPERATIVE REPORT DATE OF : 49 REPORT #: [id number] PHYSICIAN: YISEL MCINTYRE MD PCP: ARIANNA FLORES REPORT IS CONFIDENTIAL AND NOT TO BE RELEASED WITHOUT AUTHORIZATION [facility] [address] [place], [place] [address] Signed control this. Gluteus minimus was split bluntly. The gluteus minimus and capsule were split sharply from the tip of the trochanter to the acetabular rim and peeled off the anterior neck. The hip was then dislocated. The femoral neck cut was made 1 fingerbreadth above the lesser trochanter. The femoral head was removed. Periacetabular soft tissue was removed sharply and all bleeders were cauterized with the Aquamantys. The acetabulum was then reamed starting with 48 and going to 52. The 52 left the anterior wall a little bit thin, so we stopped there. The cup was then impacted in 45 degrees of abduction and 20 degrees of anteversion. A single 6.5 screw was placed in the posterior superior quadrant. The acetabular liner was then impacted in position. Attention was turned to proximal femur. This was opened using the tong cutter, followed by the Johana awl. The femur was then sequentially reamed and then broached up to a 7, the 7 was quite well fitting. The 7 was left in position. Standard offset femoral neck and 0 head were placed and the hip was reduced. It was a bit long and tied and I would like to go with a -2.5. The hip was reduced and taken through range of motion. She had 90 degrees of flexion with 20 and 30 of internal-external rotation. No impingement was noted. Leg lengths were just a bit along with 0.5, with 2.5-. The hip was dislocated and the trial was removed. The final stem was impacted until it was well seated at the same level as the broach. A -2.5 ceramic head was then impacted and the hip was reduced. Leg lengths were found to be equal and the range of motion was equivalent. The wound was copiously irrigated with antibiotic solution. A total of 2.5 L antibiotic irrigation was used. The periarticular soft tissues were injected with 100 mL ropivacaine and Toradol mixture. The capsule was closed using #1 Vicryl. The vastus and IT bands were closed independently using #2 Stratafix. The fat layer was closed with 2-0 Vicryl and the subcutaneous layer with #0 Stratafix, and the skin was closed with the Dermabond mesh. She was dressed with a MARIA R dressing, awakened, and taken to recovery room in satisfactory condition. All sponge, needle, and instrument counts were correct. Yisel Mcintyre MD BA/MODL /[id number] Copies: Electronically Signed By: YISEL MCINTYRE MD 11/25/18 1809 PATIENT NAME: URVASHI LEDEZMA OPERATIVE REPORT DATE OF : 49 REPORT #: [id number] PHYSICIAN: YISEL MCINTYRE MD PCP: ARIANNA FLORES REPORT IS CONFIDENTIAL AND NOT TO BE RELEASED WITHOUT AUTHORIZATION [address] [address] Signed ~ Electronically Signed By: YISEL MCINTYRE MD 11/25/18 1809 PATIENT NAME: URVASHI LEDEZMA OPERATIVE REPORT DATE OF : 49 REPORT #: [id number] PHYSICIAN: YISEL MCINTYRE MD PCP: ARIANNA FLORES REPORT IS CONFIDENTIAL AND NOT TO BE RELEASED WITHOUT AUTHORIZATION
--- NOTE | 2018-11-25 18:39 | NUR ---
BLADDER SCAN 365 ML
--- NOTE | 2018-11-25 18:54 | NUR ---
PT JUST HAD LARGE INCONTINENT URINE EPISODE. UNMEASURED BUT PER DIRECTOR OF SPORTS MEDICINE, WAS LARGE AMOUNT
--- NOTE | 2018-11-25 18:56 | NUR ---
PER ORDER, PT'S CONTINUOUS IVF ARE DC'D PT IS DRINKING MORE THAN ADEQUATE LIQUIDS. PT SALINE LOCKED.
--- NOTE | 2018-11-25 19:08 | NUR ---
CHARGE NURSE REPORT RECEIVED FROM MONA GÓMEZ WITH NO NEEDS AT THIS TIME.
--- NOTE | 2018-11-25 21:17 | NUR ---
RECIEVED CHANGE OF SHIFT REPORT FROM ISMAEL POWERS. PATIENT RESTING AWAKE IN BED. POSSESSIONS AT BEDSIDE. DRESSING ON LEFT HIP IS CDI, NO NEW DRAINAGE NOTED. CRYOCUFF IN PLACE. MARIA R DRAIN FLASHING GREEN LIGHT. GUILLERMO HOSE, SCDS, AND ABDUCTION PILLOW IN PLACE. WHITE BOARD UPDATED. NO MORE NEEDS AT THIS TIME. CALL LIGHT WITHIN REACH.
--- NOTE | 2018-11-25 21:25 | NUR ---
ASSESSMENT COMPLETE. RT IN ROOM TO SET UP PATIENT'S HOME CPAP MACHINE. FATUMA REPORTS PAIN A "5/10" IN LEFT HIP, STATES PAIN IS "SHARP THAT THEN BECOMES A DULL PAIN", PRN PAIN MEDICATION PROVIDED. DRESSING ON LEFT HIP IS CDI, NO NEW DRAINAGED NOTED. CAPILLARY REFILL LESS THAN 2 SECONDS IN LOWER EXTREMITIES. PATIENT REPORTS IMPROVED SENSATION IN LOWER EXTREMITIES AND DENIES NUMBNESS AND TINGLING IN EXTREMITIES. ABLE TO WIGGLE AND MOVES TOES. PATIENT DENIES CHEST PAIN, SOB, OR DIFFICULTY BREATHING. IV ASSESSED TO BE PATENT, WNL. FRESH WATER BROUGHT TO PATIENT. CALL LIGHT WITHIN REACH. NO MORE NEEDS AT THIS TIME.
--- NOTE | 2018-11-25 23:15 | NUR ---
THIS RN, CARO KYLE, AND QUINN POWERS ASSISTED PATIENT IN PIVOT TRANSFER TO BEDSIDE COMMODE WITH WALKER AND GAIT BELT. SIGNIFICANT WEAKNESS NOTED IN LEFT HIP. PATIENT REPORTS PAIN INCREASED TO "7/10" WITH MOVEMENT, BUT TO "4/10" PAIN AFTER RESTING IN BED. ABDUCTOR WEDGE PLACED BETWEEN LEGS, SCDS ON, CRYOCUFF IN PLACE ON LEFT HIP, HEEL PROTECTORS IN PLACE. CPAP AT BEDSIDE TO PATIENT TO PLACE WHEN READY TO GO TO SLEEP. DRESSING IS CDI, NO NEW DRAINAGE. CALL LIGHT WITHIN REACH. NO MORE NEEDS AT THIS TIME.
--- NOTE | 2018-11-25 23:44 | NUR ---
V/S AND I&O DONE AND CHARTED. 3PA USE THE BEDSIDE COMMODE. PATIENT IS BACK IN BED. CRYO, HEEL PROTECTOR AND SCD ARE BACK ON. ICE WATER REFILLED. BEDSIDE TABLE AND CALL LIGHT IN REACH. GAIT BELT AND WALKER USED.
--- NOTE | 2018-11-26 01:40 | NUR ---
ASSESSMENT COMPLETE. PATIENT REPORTS "4/10" PAIN IN LEFT HIP, PRN PAIN MEDICATION PROVIDED. DRESSING ON LEFT HIP IS CDI, NO SIGN OF NEW DRAINAGE. HEEL PROTECTORS, CRYOCUFF, SCDs, AND GUILLERMO HOSE IN PLACE. PATIENT DENIES CHEST PAIN, SOB, OR DIFFICULTY BREATHING. IV ASSESSED TO BE PATIENT. SCHEDULED MEDICATIONS ADMINISTERED PER MAR ORDER. PATIENT DENIES NUMBNESS AND TINGLING IN EXTREMITIES AND REPORTS "GOOD" SENSATION ON LEFT HIP. ENCOURAGED PATIENT TO COUGH AND DEEP BREATH. CALL LIGHT WITHIN REACH. NO MORE NEEDS AT THIS TIME.
--- NOTE | 2018-11-26 02:15 | NUR ---
THIS RN, JL CHARGE NURSE AND CARO KYLE ASSISTED PATIENT A 3 PA TO BEDSIDE COMMODE USING GAIT BELT AND FWW. WEAKNESS NOTED ON LEFT HIP. PATIENT REPORTED FEELING DIZZY DURING TRANSFER, NURSING STAFF ENCOURAGED PATIENT TO TAKE HER TIME AND MOVE SLOWLY, PATIENT EXPRESSED UNDERSTANDING. CRACKERS PROVIDED TO PATIENT. PATIENT EXHIBITED BEING VISIBLY UPSET AND EMOTIONAL AFTER GETTING BACK INTO BED AFTER TRANSFER FROM [facility], THERAPEUTIC COMMUNICATION PROVIDED. FRESH ICE PLACED IN CRYOCUFF. FRESH WATER AND WARM BLANKET PROVIDED TO PATIENT. CALL LIGHT WITHIN REACH. NO MORE NEEDS AT THIS TIME.
--- NOTE | 2018-11-26 04:51 | NUR ---
ROUNDED ON PATIENT RESTING IN BED WITH EYES CLOSED, RESPIRATORY RATE IS EVEN AND UNLABORED. CPAP ON. CALL LIGHT WITHIN REACH.
--- NOTE | 2018-11-26 05:40 | NUR ---
REGULAR DIET. PATIENT SLEPT THROUGHOUT NIGHT. CPAP. PT/OT. 3PA TO [facility] WITH FWW AND GAIT BELT, PAINFUL AND LEFT LEG SONJA, QUEING PROVIDED. PRN PAIN MEDICATION PROVIDED X2. PRN PAIN MEDICATION PROVIDED PRIOR TO TRANSFER. CRYOCUFF ON LEFT HIP. GUILLERMO ALLEN, ZAKIs, HEEL PROTECTORS IN PLACE. ABDUCTION DEVICE IN PLACE. MARIA R DRESSING CDI, FLASHING GREEN LIGHT. INCENTIVE SPIROMETER. SALINE LOCKED.
--- NOTE | 2018-11-26 06:15 | NUR ---
ASSESSMENT COMPLETE. PATIENT REPORTS "2/10" PAIN IN LEFT HIP. PATINET DENIES CHEST PAIN, SOB, OR DIFFICULTY BREATHING. DRESSING ON LEFT HIP IS CDI, NO NEW DRAINAGE. MARIA R FLASHING GREEN LIGHT. GUILLERMO HOSE, SCDS, AND CRYOCUFF IN PLACE. CALL LIGHT WITHIN REACH. INCENTIVE SPIROMETER AT BEDSIDE.
--- NOTE | 2018-11-26 08:02 | NUR ---
PT AWAKE, ALERT AND ORIENTED X3. PT IS ON RA, RESP EVEN AND NON LABORED. PT EATING BREAKFAST AT THIS TIME. PT REPORTS PAIN IS TOLERABLE AT THE MOMENT. PT RECENTLY VOIDED. PERSONAL SUPPLIES AND CALL LEYDA DAWKINS.
--- NOTE | 2018-11-26 08:24 | NUR ---
PATIENT UP TO BSC AND BACK TO BED, 3 PA AND GAIT BELT. LINENS CHANGED. PATIENT NOW EATING BREAKFAST. CALL LIGHT IN REACH. NO FURTHER NEEDS AT THIS TIME.
--- NOTE | 2018-11-26 09:57 | NUR ---
PATIENT IN BED, PT IN ROOM. CRYO FILLED. FRESH WATER GIVEN. CALL LIGHT IN REACH. NO FURTHER NEEDS AT THIS TIME.
[2018-11-26] MEDS ORDERED: FUROSEMIDE40 MG PO (10:22)
[2018-11-26] MEDS ORDERED: LEVOTHYROXINE175 MCG PO (10:23)
--- NOTE | 2018-11-26 10:44 | NUR ---
PT REQUESTING PAIN MEDICATION, RATING PAIN 4/10 TO LEFT HIP, PROVIDED WITH 5 MG PO OXYCODONE. PT PROVIDED WITH FRESH WATER. PT DENIES OTHER NEEDS AT THIS TIME.
--- NOTE | 2018-11-26 11:37 | NUR ---
PT AWAKE SITTING UP IN CHAIR; IS ALERT AND ORIENTED X3. PT REPORTS PAIN IN LEFT HIP IS IMPROVED. PT DENIES NEED TO VOID AT THIS TIME. PERSONAL SUPPLIE AND CALL HELLEN DAWKINS.
--- NOTE | 2018-11-26 13:05 | NUR ---
PATIENT IN CHAIR EATING LUNCH. CRYO FILLED. CALL LIGHT IN REACH. NO FURTHER NEEDS AT THIS TIME.
--- NOTE | 2018-11-26 14:07 | NUR ---
PT UP AMBULATING IN HALLS WITH P.T. PT FOCUSED AND WORKING HARD-EXTENDED ENCOURAGEMENT. WILL FOLLOW NEEDED
[2018-11-26] MEDS ORDERED: CHLORHEXIDINE473 ML MM (14:27)
--- NOTE | 2018-11-26 14:29 | NUR ---
MED REC COMPLETE
--- NOTE | 2018-11-26 14:43 | NUR ---
ADMIN OXYCODONE 5MG PO FOR REPORTS OF 4/10 LEFT HIP PAIN.
--- NOTE | 2018-11-26 17:15 | NUR ---
PT EXPECTS TO RETURN HOME UPON DC AND WILL BE FOLLOWING UP AT [facility] PT. PT STATES THAT SHE ATTENDED THE JOINT [facility] PRIOR TO SURGERY, ALSO STATES SHE ALREADY HAS A WALKER, WALK IN SHOWER WITH A SHOWER CHAIR, RAISED TOILET SEAT.
--- NOTE | 2018-11-26 18:02 | NUR ---
PATIENT IN BED. FRESH WATER GIVEN. CRYO CHECKED. CALL LIGHT IN REACH. NO FURTHER NEEDS AT THIS TIME.
--- NOTE | 2018-11-26 18:16 | NUR ---
IV SL. PT ON RA. OXYCODONE FOR PAIN. TOLERATING DIET WELL. 2PA WITH FWW.
--- NOTE | 2018-11-26 19:05 | NUR ---
CHARGE NURSE REPORT RECEIVED, PT STATES PAIN HAS BEEN CONTROLLED, INCREASES WITH MOVEMENT. NO NEEDS AT THIS TIME.
--- NOTE | 2018-11-26 19:26 | NUR ---
RECIEVED CHANGE OF SHIFT REPORTS FROM HOSEA POWERS. PATIENT RESTING AWAKE IN BED. WHITE BOARD UPDATED. CALL LIGHT WITHIN REACH. NO MORE NEEDS AT THIS TIME.
--- NOTE | 2018-11-26 20:20 | NUR ---
ASSESSMENT COMPLETE. PATIENT REPORTS "3/10" SHARP PAIN IN LEFT HIP AFTER RESTING IN BED AFTER USING BSC. PATIENT REPORTS PAIN INCREASES TO A "3-4/10" WITH MOVEMENT. 2 PA PATIENT TO BSC, WITH GAIT BELT AND FWW, PATIENT REPORTS BEING PAINFUL WITH PIVOTS. MARIA R DRESSING IS CDI, NO NEW DRAINAGE NOTED. MARIA R DRAIN FLASHING GREEN LIGHT. CRYOCUFF IN PLACE. GUILLERMO HOSE AND SCDS IN PLACE. EDUCATED PATIENT NOT TO CROSS LEGS WHILE IN BED, PATIENT EXPRESSED UNDERSTANDING. PATIENT REPORTS SENSATION IN LEFT HIP AND DENIES NUMBNESS AND TINGLING IN EXTREMITIES. ENCOURAGED PATIENT TO USE INCENTIVE SPIROMETER. CALL LIGHT WITHIN REACH. NO MORE NEEDS AT THIS TIME. VITALS ASSESSED AND RECORED. INTAKE AND OUTPUT ASSESSED AND RECORED.
--- NOTE | 2018-11-26 20:45 | NUR ---
PT REQUESTED SUGAR FREE PUDDING. CRYO FILLED WITH FRESH ICE/WATER. VISITED WITH PT, SHE IS KNOWN TO THIS NURSE.
--- NOTE | 2018-11-26 23:00 | NUR ---
ROUNDED ON PATIENT TO ASSIST PATIENT TO BSC WITH ASSIST FROM CARO KYLE, USING A GAIT BELT AND FWW. PATIENT REPORTS BEING PAINFUL WHEN USING THE COMMODE, MINIMAL QUEING REQUIRED WITH PIVOT TO BSC. PRN PAIN MEDICATION PROVIDED FOR "4/10" PAIN IN LEFT HIP. HEEL PROTECTORS IN PLACE. REMINDED PATIENT NOT TO CROSS LEGS WHILE LAYING/SLEEPING IN BED, PATIENT EXPRESSED UNDERSTANDING. CPAP AT BEDSIDE. CALL LIGHT WITHIN REACH. NO MORE NEEDS AT THIS TIME.
--- NOTE | 2018-11-27 00:26 | NUR ---
ROUNDED ON PATIENT RESTING IN BED WITH CPAP IN PLACE. RESPIRATORY RATE IS EVEN AND UNLABORED. CALL LIGHT WITHIN REACH.
--- NOTE | 2018-11-27 00:36 | NUR ---
2 PA USE THE BEDSIDE COMMODE USING WALKER AND GAIT BELT. PATIENT IS BACK IN BED. CRYO SCD HEEL PROTECTOR ARE BACK ON. BEDSIDE TABLE AND CALL LIGHT WITHIN REACH.
--- NOTE | 2018-11-27 03:12 | NUR ---
rounded on patient for administer prn pain medication for reported "5/10" pain in left hip. fresh water brought to patient. call light within reach. no more needs at this time.
--- NOTE | 2018-11-27 04:13 | NUR ---
ASSESSMENT COMPLETE. PATIENT REPORTS "2/10" "ACHY" PAIN IN LEFT HIP, MARIA R DRESSING IN CDI, FLASHING GREEN LIGHT. PATIENT REPORTS NUMBNESS IN MEDIAL SIDE OF LEFT THIGH, PATIENT STATES SHE NOTICED THIS AFTER TRANSFERING [place] [facility] STRONG PERIPERAL PULSES. PATIENT DENIES NUMBNESS AND TINGLING IN EXTREMITIES. PATIENT DENIES CHEST PAIN, SOB, OR DIFFICULT BREATHING. CALL LIGHT WITHIN REACH. NO MORE NEEDS AT THIS TIME. ICE IN CRYOCUFF. REMINDED PATIENT NOT CROSS LEGS, PATIENT EXPRESSED UNDERSTANDING. GUILLERMO ALLEN, SCDS, AND, HEEL PROTECTORS IN PLACE.
--- NOTE | 2018-11-27 06:18 | NUR ---
rounded on patient for scheduled medication adminstration. patient reports pain is "not too bad" as patient reports pain as a "2/10". call light within reach. no more needs at this time.
--- NOTE | 2018-11-27 06:28 | NUR ---
PATIENT SLEPT WELL THROUGHTOUT THE NIGHT. CPAP IN PLACE. 2PA TO BSC WITH GAITBELT AND FWW, PATIENT PAINFUL WITH MOVEMENT TO BSC, PATIENT ABLE TO TRANSFER WITH LESS SUPPORT FROM NURSING STAFF THAN LAST NIGHT. PT/OT. HEEL PROTECTORS. SCDs, GUILLERMO HOSE, AND MARIA R DRESSING IN PLACE. MARIA R DRESSING IS CDI, NO NEW DRAINAGE, FLASHING GREEN LIGHT. IS. PRN PAIN MEDICATION X2. PATIENT SLEPT WITH OUT ABDUCTOR DEVICE THROUGHOUT NIGHT, NURSING STAFF EDUCATED PATIENT NOT TO CROSS LEGS, PATIENT EXPRESSED/DEMONSTRATED UNDERSTANDING.
--- NOTE | 2018-11-27 12:59 | NUR ---
ADMIN 10MG OXYCODONE FRO REPORTS OF 5/10 LEFT HIP PAIN.
--- NOTE | 2018-11-27 20:24 | NUR ---
up to br, voided, back to bed with 1 pa and fww and gait belt, tolerated well.
--- NOTE | 2018-11-27 22:20 | NUR ---
PT REQUESTED PAIN MED FOR 6/10 PAIN, STATES WHEN SHE DOESN'T MOVE IT IS ONLY 2/10, BUT INCREASES WHEN SHE MOVES. DRINKING WATER, CALL LIGHT WITHIN REACH. NO OTHER NEEDS AT THIS TIME.
--- NOTE | 2018-11-27 22:52 | NUR ---
1PA TO THE BATHROOM AND BACK TO BED USING WALKER AND GAIT BELT. CRYO REFILLED. SCD,HEEL PROTECTOR AND CRYO ARE BACK ON. CALL LIGHT AND SIDE TABLE WITHIN REACH.
--- NOTE | 2018-11-28 00:31 | NUR ---
RESTING, EYES CLOSED, NO DISTRESS, CRYOCUFF, GUILLERMO HOSE, SCDS, HEEL PROTECTORS IN PLACE, CALL LIGHT WITHIN HANDS REACH
--- NOTE | 2018-11-28 01:07 | NUR ---
PATIENT CALLED TO USE THE TOILET. 1PA USING WALKER AND GAIT BELT.
--- NOTE | 2018-11-28 05:40 | NUR ---
up to br, voided and had large soft bm. L hip MARIA R dressing in place, intact, patent. izzy ricks, scds, heel protector, cryocuff inplace. declined hip abductor. Has been medicated w Nycinta and 2x with Oxycodone, good pain relief Much improved gait, up with 1pa/fww. Currently in bed, no further requests, fresh ice to cryocuff and fresh water and call light at bedside, on RA
--- NOTE | 2018-11-28 06:37 | NUR ---
MEDICATED WITH OXYCODONE 10MG PO C/O 4/10 L LEG PAIN, AWAKE
--- NOTE | 2018-11-28 08:00 | NUR ---
RECEIVED REPORT AT 0700, FOUND PT IN BED AWAKE. PT HAD NO NEEDS OR CONCERNS AT THAT TIME.
[2018-11-28] MEDS ORDERED: XARELTO10 MG PO (08:03)
[2018-11-28] MEDS ORDERED: GABAPENTIN300 MG PO (08:03)
[2018-11-28] MEDS ORDERED: NUCYNTA50 MG PO (08:03)
[2018-11-28] MEDS ORDERED: OXYCODONE HCL5 MG PO (08:03)
[2018-11-28] MEDS ORDERED: SENNA LAX8.6 MG PO (08:04)
--- NOTE | 2018-11-28 09:18 | NUR ---
PATIENT IN BED. PATIENT'S IV COVERED. PATIENT WALKS TO BATHROOM TO TAKE A SHOWER USING A WALKER. ONE PERSON ASSISTING. PATIENT USING A CLEAN GOWN. LINENS CHANGED. PATIENT BACKS TO BED. VITAL SIGNS AND I&O DONE. ICE WATER GIVEN. WARM BLANKETS PROVIDED. CALL LIGHT WITHIN REACH. NO OTHER NEEDS AT THIS TIME.
--- NOTE | 2018-11-28 10:00 | NUR ---
V/S ARE WDL. PAIN IS WELL CONTROLLED AND PT HAS BEEN CLEARED FROM PHYS. THERAPY. MD CUEVAS CALLED. PT TO BE D/C AFTER LUNCH. PICCO DRESSING INTACT. SOME EDEMA PRESENT ON LEFT HIP. PT WALKING WELL. PEDIS PULSES +2. NO NEW CONCERNS NOTED SO FAR.
--- NOTE | 2018-11-28 12:00 | NUR ---
PT IS EATING LUNCH. D/C PROCESS IS COMPLETE. WAITING ON TO PICK HER UP.
--- NOTE | 2018-11-29 09:05 | NUR ---
CALL PLACED TO URVASHI AFTER RECIEVING CALL FROM DR BUSTAMANTE TO HOLD [employer] UNTIL SHE HAS APPOINTMENT WITH HER PCP. URVASHI STATES SHE IS HOLDING IT AND WILL FOLLOW UP WITH HER PCP. STATES SHE IS DOING WELL THIS MORNING.
== END 2018-11-28 12:53 | disposition home or self-care (01) ==
LOC: DS 07:00 → DSVR 07:00 → MS 07:00 → DSVR 07:00 → MS 08:30 → DS 09:51 → MS 09:52 → DSVR 12:10 → MS 11-28 12:53
PROVIDERS: ADMIT Specialist
PROC: 3E0T3BZ Introduction of Anesthetic Agent into Peripheral Nerves and Plexi, Percutaneous Approach (ICD-10-PCS; 2018-11-25)
PROC: 5A09357 Assistance with Respiratory Ventilation, Less than 24 Consecutive Hours, Continuous Positive Airway Pressure (ICD-10-PCS; 2018-11-25)
PROC: 0SRB0JZ Replacement of Left Hip Joint with Synthetic Substitute, Open Approach (ICD-10-PCS; principal; 2018-11-25 08:30)
DX: M16.12 Unilateral primary osteoarthritis, left hip (principal); G89.18 Other acute postprocedural pain; I10 Essential (primary) hypertension; E78.5 Hyperlipidemia, unspecified; G47.33 Obstructive sleep apnea (adult) (pediatric); F39 Unspecified mood [affective] disorder; E03.9 Hypothyroidism, unspecified; G25.81 Restless legs syndrome; K21.9 Gastro-esophageal reflux disease without esophagitis; I73.00 Raynaud's syndrome without gangrene; E87.1 Hypo-osmolality and hyponatremia; I25.10 Atherosclerotic heart disease of native coronary artery without angina pectoris; I47.1 Supraventricular tachycardia; E66.9 Obesity, unspecified; Z68.31 Body mass index [BMI] 31.0-31.9, adult; Z79.1 Long term (current) use of non-steroidal anti-inflammatories (NSAID); Z79.899 Other long term (current) drug therapy
CPT/HCPCS: 01214; 36415; 64447; 72170; 76942; 80048; 84295; 85025; 96374; 96375; 96376; 97110; 97116; 97162; 97165; 97530; C1776; G0378; J0131; J0690; J0735; J1100; J1885; J2250; J2405; J2704; J2765; J3010; J7040; J7120

== ENCOUNTER 2019-03-05 10:18 | Inpatient (IN) | payer MEDICARE, OTHER ==
[~2019-03-05] VITALS: Ht 162.6 cm; Wt 77.1 kg
[~2019-03-05 10:18] MED LIST changes: +CHLORHEXIDINE473 ML MM; +FUROSEMIDE40 MG PO; +GABAPENTIN300 MG PO; +LEVOTHYROXINE175 MCG PO; +OXYCODONE HCL5 MG PO; +SENNA LAX8.6 MG PO
[2019-03-05] MEDS ORDERED: ACETAMINOPHEN500 MG PO (10:39)
--- NOTE | 2019-03-05 14:00 | NUR ---
PT RECEIVED FROM PACU AT 1345. VSS. P[T RATING PAIN 2/10 TO LEFT HIP. DRESSING TO LEFT HIP CDI, ALEXA DRIAN IN PLACE, MARIA R PUMP FLASHING GREEN. PT DENIES NAUSEA. PT ON ROOM AIR, LUNG SOUNDS CLEAR, CONTINUOUS PULSE OX IN PLACE. PT DERMATOME LEVEL AT L2, UNABLE TO MOVE FEET. SCDS IN PLACE, PULSES PALPABLE. VANCO INFUSING. PICC NURSE TO INSERT PICC LINE TODAY. DISCUSSED PLAN OF CARE AND POST-OP INSTRUCTIONS. PT DENIES OTHER NEEDS AT THIS TIME.
--- NOTE | 2019-03-05 14:05 | NUR ---
03/05/19 1405 Jeri Ramirez 1231 PT ARRIVED IN PACU WIDE AWAKE AND SHIVERING. TEMP 101.1. 1248 DR AT BEDSIDE. VERBAL ORDER GIVEN. TYLENOL 1GM GIVEN IVP. 1300 NO C/O'S PAIN. VANCOMYCIN 2GM IV STARTED ON PUMP. MARIA R DRSG INTACT TO L HIP WITH GREEN LIGHT PRESENT. ICE PLACED. WILL RETURN WITH CRYO CUFF. 1305 TORADOL 15MG GIVEN IVP PER DR ORDERS. 1330 PT STOPPED SHIVERING. TEMP 99.8. NO C/O'S PAIN. SPINAL LEVEL AT T-10. 1345 TO MED SURG ROOM 115. REPORT GIVEN TO RN. BED PLUGGED IN AND CALL LITE GIVEN TO PT. MARIA R DRSG INTACT WITH GREEN LIGHT PRESENT.
--- NOTE | 2019-03-05 14:56 | NUR ---
PT RESTIGN IN BED. PT CONTINUES TO HAVE BLE NUMBNESS, ABLE TO MOVE FEET, DERMATOME LEVEL L4. PT STATES PAIN TOLERABLE. PT TOLERATING WATER, ATE A FEW CRACKERS, DENIES NAUSEA. SPOUSE BROUGHT IN CRYOCUFF, ATTACHMENT FOR KNEE, PLACED TO HIP AND SUPPORTED WITH PILLOW, SPOUSE TO BRING IN HIP ATTACHMENT TOMORROW. DRESSING WITHOUT DRAINAGE. PT DENIES OTHER NEEDS AT THIS TIME.
--- NOTE | 2019-03-05 15:55 | NUR ---
PT ON ROOM AIR. VSS. PT STATES PAIN TOLERBALE. MARIA R DRESSING CDI. ALEXA DRAIN EMPTIED FOR 25 ML SANGUINOUS FLUID. PT SENSATION RETURNING, RIGHT FOOT SENSTATION SLIGHTLY MORE NUMB THAN LEFT FOOT. IV SALINE LOCKED. PT DENIES NEED TO VOID AT THIS TIME. PT DENIES OTHER NEEDS.
--- NOTE | 2019-03-05 16:45 | NUR ---
PT RESTING IN BED. PICC RN AT BEDSIDE. PT ON ROOM AIR, LUNG SOUNDS CLEAR. PT DENIES NAUSEA, BOWEL TONES ACTIVE. PT CONTINUES TO HAVE SLIGHT NUMBNESS TO RIGHT FOOT COMPARED TO LEFT, IMPROVING, PUSLES PALPBALE. VSS. PT CONTINUES TO DENY NEED TO VOID, DISCUSSED TO GET TO BSC AFTER PICC LINE PLACEMENT. MARIA R DRESSING CDI, DRAINAGE NOTED AROUND ALEXA DRAIN TUBE. PT DENIES OTHER NEEDS AT THIS TIME.
--- NOTE | 2019-03-05 18:25 | NUR ---
PICC LINE INSERTION COMPLETED. PT ASSISTED TO BSC, VOIDED 300 ML. PT EATING DINNER. PT DENIES OTHER NEEDS AT THIS TIME.
--- NOTE | 2019-03-05 18:33 | NUR ---
PICC INSERTION NOTE: ASKED BY DR. CUEVAS TO EVALUATE PATIENT FOR POTENTIAL PICC LINE PLACEMENT DUE TO FPC ABX NEEDED. AFTER REVIEWING THE CHART AND INTERVIEWING THE PATIENT, NO ABSOLUTE CONTRAINDICATIONS WERE IDENTIFIED. PATIENT WAS ABLE TO SIGN CONSENT FORM AND ASKS QUESTIONS APPROPRIATELY. PATIENT'S RIGHT ARM WAS EVALUATED FIRST USING THE SITE RITE U/S. PT'S BASILIC, BRACHIAL AND CEPHALIC VEINS WERE IDENTIFIED AND ONLY THE BRACHIAL AND CEPHALIC LOOKED TO BE GOOD CANDIDATES. BOTH WERE NOTED TO BE GREATER THAN 8 FR BY SITE RITE U/S. CDC RECOMMENDED GUIDELINES FOR STERILE PREP OF INSERTION SITE WAS THEN FOLLOWED. CEPHALIC VEIN WAS ACCESSED EASILY UPON THE FIRST ATTEMPT. BRISK, DARK, NONPULSATILE BLOOD WAS RETURNED. GUIDEWIRE THREADED EASILY INTO VEIN, WELL INTRODUCER, AND PICC LINE. 3 ATTEMPTS WERE MADE TO ADJUST PICC LINE APPROPRIATELY USING THE SHERLOCK TIP GUIDE/MAGNET. STERILE DRESSING APPLIED AND CHEST XRAY TAKEN. AWAITING OFFICIAL RADIOLOGIST READ ON CHEST XRAY. REPORT GIVEN TO PRIYA BOND. PATIENT GIVEN EDUCATION MATERIAL ON PICC. PRESSURES DRESSING APPLIED WITH GAUZE AND COBAN. PATIENT ENCOURAGED TO ASK QUESTIONS REGARDING HER PICC NEEDED.
--- NOTE | 2019-03-05 18:33 | NUR ---
PT ADMITTED AFTER LEFT HIP I&D. PAIN WELL CONTROLLED WITH OXYCODONE, SPINAL RESOLVED. PT ON ROOM AIR, CPAP AT BEDSIDE, CONTINUOUS PULSE OX IN PLACE. PT RECEIVED PICC LINE TO RIGHT ARM, HEP LOCKED. PT ASSISTED TO BSC, VOIDING. PT TOLERATING REGULAR DIET DENIES NAUSEA. SPICA, MARIA R DRESSING CDI, ALEXA WITH SANGUINOUS DRAINAGE, DRAINAGE ALONG TUBE FROM INSERTION SITE. SCDS HEEL PTOTECTORS AND CRYOCUFF IN PLACE.
--- NOTE | 2019-03-05 19:25 | NUR ---
ROUNDED CHARGE. PATIENT IS RESTING IN BED. PATIENT DENIES ANY PAIN. PATIENT DENIES ANY COMMENTS, QUESTIONS OR CONCERNS. NO NEEDS NOTED. CALL LIGHT IN REACH.
--- NOTE | 2019-03-05 19:40 | NUR ---
TEMP 100.3, PT HS 6 BEDCOVERS, DECLINES TO TAKE THEM OFF. ROOM TEMP 77o, decreased to 72o, IS at bedside, return demonstration done. pt is due for IV tylenol at 2200. CDB encouraged too, pt on room air. Will recheck temp in 2 hours
--- NOTE | 2019-03-05 23:56 | NUR ---
RESTING, CONTINUES ON CPOX AND 1L O2/NC. SATS 94%.. SPICA AND MARIA R DRESSING L HIP, TEDHOSE, SCDS , CRYOCUFF, HEEL PROTECTORS INPLACE.
--- NOTE | 2019-03-06 03:16 | NUR ---
AWAKES EASILY, CPAP IN PLACE, ON ROOM AIR, CPOX SATS READINGS AT 96%. LEFT HIP DRESSING W/O CHNAGES. SS DRAINAGE UNDER ALEXA OPSITE DRESSING. ALEXA PATENT. MARIA R DRESSING AND SPICA JIGNESH WRAP DRESSING PATENT. SCDS, GUILLERMO HOSE, HEEL PROTECTORS AND CRYOCUFF IN PLACE. UP TO BSC, VOIDED, BACK TO BED WITH MINIMUM OF ASSIST
--- NOTE | 2019-03-06 06:01 | NUR ---
currently awake, no c/o pain. pice karla bandage and inocencio dressing intact l hip. pia site with serous drainage. scds, heel protectors, tedhose, cryocuff in place. good cms. picc line patent. flushes easily. temp 100.3 earlier in shift, resolved 98.2 at this time, gets Tylenol IV, oxycontin and toradol shceduled. call lihgt at bedside. Gets up to bsc with minimum og assist
--- NOTE | 2019-03-06 07:20 | NUR ---
PT RESTING RECLINED IN RECLINER. PT A/O X4 DENIES NEEDS/CONCERNS. CALL LIGHT AND H20 IN REACH. BEDSIDE REPORT RECEIVED FROM MARCIN POWERS. CPOX IN PLACE AND REEDS 94% ON RA.
--- NOTE | 2019-03-06 07:40 | OR ---
[facility] [address] [place], [place] [address] Signed DATE OF OPERATION: 03/05/2019 SURGEON: Yisel Mcintyre MD PREOPERATIVE DIAGNOSIS: Infected seroma, left hip. POSTOPERATIVE DIAGNOSIS: Infected seroma, left hip. PROCEDURES PERFORMED: 1. Aspiration, left total hip. 2. Irrigation and debridement, left subcutaneous seroma. MOBILE PET GROOMER: Jackie Rodriguez PA-C. Jackie was present critical for all portions of the procedure. ANESTHESIA: Spinal. BLOOD LOSS: 75 mL. IMPLANTS: None. CULTURES: Yes, deep aspirate was sent for culture and synovial fluid. DRAINS: A 10-Iraqi Manny drain was placed. BRIEF HISTORY: Urvashi is a 73-year-old female who underwent total hip arthroplasty about three months ago. She presented to my office yesterday with swelling laterally and fevers and chills. She was walking without pain and had no pain on motion of the hip, but did have some pain with palpation laterally. She had labs drawn, which showed an exceedingly high CRP and a sedimentation rate, but normal white count. I asked her to come in for an aspiration of the hip for the possibility of washing out the hip versus just a Electronically Signed By: YISEL MCINTYRE MD 03/06/19 0740 PATIENT NAME: URVASHI LEDEZMA OPERATIVE REPORT DATE OF : 49 REPORT #: [id number] PHYSICIAN: YISEL MCINTYRE MD PCP: ARIANNA FLORES REPORT IS CONFIDENTIAL AND NOT TO BE RELEASED WITHOUT AUTHORIZATION [facility] [address], [place] [address] Signed seroma. She arrived and labs were done as well as a chest x-ray, which was clear. UA was clear. DESCRIPTION OF PROCEDURE: Once consent was obtained, she was taken to the operating room. After adequate anesthesia, she was placed supine on the cysto table. The C-arm was brought in. Under C-arm guidance, an 18-gauge spinal needle was introduced into the hip joint. I was able to palpate with needle tip the metal prosthesis. We then attempted to aspirate multiple portions of the hip joint with no fluid encountered at all. It was completely dry. The needle was then withdrawn. The needle was then introduced into the seroma and 30 mL of cloudy infected looking fluid was removed and sent to the lab. At that point, we elected just to provide debridement of the seroma. She was then moved into lateral decubitus position with an axillary roll and the hip was prepped and draped in a standard sterile fashion. The inferior half of the incision was then opened up and purulent material was obtained and deep cultures were taken. The seroma capsule was then removed sharply. The wound was copiously irrigated with 3 L of antibiotic irrigation under pulse lavage. Another 0.5 L of Irrisept was used. This was allowed to sit in the wound. Deep palpation superiorly showed no capsular rents or openings. The deep fascial tissue was intact all the way through. There was a superior end to the capsule that did not allow any palpation up over the tip of the trochanter. The 10-Iraqi Manny drain was then placed into the deep edge of the wound and the deep tissues were closed using 2-0 Monocryl, the skin with 2-0 nylon, and a MARIA R wound VAC dressing was applied. She was then placed into a hip spica dressing and taken to the recovery room in satisfactory condition. All sponge, needle, and instrument counts were correct. Yisel Mcintyre MD BA/ITALIA /[id number] Copies: ~ Electronically Signed By: YISEL MCINTYRE MD 03/06/19 0740 PATIENT NAME: URVASHI LEDEZMA OPERATIVE REPORT DATE OF : 49 REPORT #: [id number] PHYSICIAN: YISEL MCITNYRE MD PCP: ARIANNA FLORES REPORT IS CONFIDENTIAL AND NOT TO BE RELEASED WITHOUT AUTHORIZATION
--- NOTE | 2019-03-06 08:36 | NUR ---
PATIENT IN CHAIR FOR BREAKFAST. PATIENT UP TO BATHROOM AND BACK TO BED, SBA. ORAL CARE AND AM CARE DONE. LINENS CHANGED. CALL LIGHT IN REACH. NO FURTHER NEEDS AT THIS TIME.
--- NOTE | 2019-03-06 08:52 | NUR ---
TOOK A MESSAGE FROM KATHRINE THAT THE PATIENTS HOME MED NALTREXONE WILL INTERFERE WITH HER CURRENT MEDS, TOLD MARIAA AND ALSO TOLD THE PATIENT AND CALLED THE TO MAKE SURE HE WASNT BRINGING THEM IN.
--- NOTE | 2019-03-06 09:12 | NUR ---
PT RESTING SUPINE IN BED, ALERT AND ORIENTED. AM MEDS ADMINISTERED AND ASSESSMENT COMPLETED. PT CURRENTLY WATCHING TV AND DENIES NEEDS/CONCERNS AT THIS TIME. CALL LIGHT AND H20 IN REACH.
[2019-03-06] MEDS ORDERED: FLUOXETINE HCL10 M1 PO (09:50)
--- NOTE | 2019-03-06 10:00 | NUR ---
PATIENT IN BED RESTING. CRYO FILLED. CALL LIGHT IN REACH. NO FURTHER NEEDS AT THIS TIME. PATIENT WANTS BED BATH LATER TODAY, WILL BE BACK TO ASSIST IN BED BATH.
--- NOTE | 2019-03-06 11:17 | NUR ---
PT SITTING UP IN CHAIR WATCHING TV. CALL LIGHT AND H20 IN REACH. PT DENIES NEEDS/CONCERNS AT THIS TIME AND APPEARS TO BE IN NO DISTRESS, RR16.
--- NOTE | 2019-03-06 12:03 | NUR ---
GREEN TOP DRAWNA ND SENT TO LAB. FLUSHED WITH 10MLS NS AND PT HEP LOCKED. CALL LIGHT QAND H20 IN REACH. PT EATING LUNCH, FAMILY AT BEDSIDE. PT DENIES FURHTER NEEDS/CONCERNS.
--- NOTE | 2019-03-06 13:55 | NUR ---
PATIENT IN BED RESTING WITH EYES CLOSED. CRYO FILLED. CALL LIGHT IN REACH. NO FURTHER NEEDS AT THIS TIME.
--- NOTE | 2019-03-06 14:24 | NUR ---
PT EXPERIENCING A SET-BACK FROM PREVIOUS JOINT REPLACEMENT. PT AND BOTH SEEM TO BE DEALING APPROPRIATELY. PT HAS BIG TRAVEL PLANS COMING UP AND IS HOPING TO BE READY FOR ONE IN MARCH. I ALSO BROUGHT CALDERÓN IN FOR PT THAT HAD BEEN DELIVERED FOR HER. EXTENDED A BLESSING, WILL FOLLOW NEEDED
--- NOTE | 2019-03-06 14:28 | NUR ---
MED REC COMPLETE
--- NOTE | 2019-03-06 14:53 | NUR ---
THIS RN ASSUMING CARE OF PT. REPORT RECEIVED FROM PRIYA LEROY. THIS RN TO ROOM TO CHECK ON PT AND GIVEN MEDICATIONS. PT REPORTS 1/10 PAIN IN HIP BUT 2/10 "EPIGASTRIC PAIN" THAT IS "GETTING WORSE." PT STATES EPIGASTRIC PAIN IS SOMETHING SHE GETS AT HOME AND THAT NORMALLY, "I POP A FEW TUMS AND IT GOES AWAY." TORDOL HELD AND MD CALLED. ORDERS GIVEN FOR TUMS AND TO GIVE TORDOL. TUMS AND TORDOL GIVEN. PICC LINE ASSESED, HEPARIN REMOVED FROM PICC LINE. BRISK BLOOD RETURN NOTED. VANCO STARTED. ICE WATER REFILLED. CRYO CUFF IN PLACE. NO ADDITIONAL REQUESTS OR COMPLAINTS AT THIS TIME. CALL LIGHT WITHIN REACH.
--- NOTE | 2019-03-06 15:48 | NUR ---
PUMP ALARMING, INFUSION AND FLUSH COMPLETE. PICC LINE ASSESSED, WNL, BRISK BLOOD RETURN NOTED. PICC LINE HEPARIN LOCKED PER PROTOCOL. PT UP TO RESTROOM. STEADY ON FEET WITH SBA. PT BACK TO BED. PULSE OX READING 94% ON ROOM AIR. SCD'S, CRYO CUFF IN PLACE. ALEXA DRAIN DRAINING SERIOUS ANGUINOUS DRAINAGE. PT REPORTS NO PAIN, 0/10 AT THIS TIME IN BOTH HIP AND EPIGASTRIC. NO FURTHER REQUESTS OR COMPLAINTS AT THIS TIME. CALL LIGHT WITHIN REACH.
--- NOTE | 2019-03-06 16:10 | NUR ---
PRIYA LEROY RETURNING TO ASSUME CARE OF PT. REPORT GIVEN. QUESTIONS ASKED AND ANSWERED.
--- NOTE | 2019-03-06 16:53 | NUR ---
WASTE PAPER HAMMERMILL OPERATOR TERI ARRIVED TO TAKE PT TO SURGERY. PT TRANSFERES SELF TO BED. PUMPS SENT WITH PT WITH IV INFUSIONS CONTINUING. REPORT GIVEN TO TERI WHO STATES HER QUESTIONS HAVE BEEN ANSWERED.
--- NOTE | 2019-03-06 19:55 | NUR ---
IN BED, NO C/O PAIN, VISITING. CALL LIGHT AT BEDSIDE
--- NOTE | 2019-03-06 21:10 | NUR ---
IN ROOM TO ADMINISTER EVENING MEDICATIONS FOR PRIMARY RN. PT DENIES FURTHER NEEDS AT THIS TIME. CALL LIGHT IS WITHIN REACH.
--- NOTE | 2019-03-06 21:32 | NUR ---
HELPED PT TO THE BATHROOM AND BACK TO BED. SCD'S PUT ON. FRESH ICE WATER GIVEN. BEDSIDE TABLE AND CALL LIGHT IN REACH.
--- NOTE | 2019-03-06 22:15 | NUR ---
CPAP IN PLACE, MEDICATED WITH SCHEDULED TYLENOL. DRESSINGS- SPICA AND MARIA R L HIP IN PLACE. ALEXA SITE COVERED WITH OPSITE WITH SS DRAINAGE UNDERNEATH DRESSING, PATENT. GUILLERMO HOSE, SCDS, HEEL PROTECTORS AND CRYOCUFF IN PLACE. TOLERATING FLUIDS WELL. RA PICC LINE INTACT
--- NOTE | 2019-03-07 02:38 | NUR ---
USING HOME CPAP. NO C/O RESP DISTRESS. MEDICATED EARLIER WITH SCHEDULED TORADOL AND OXYCONTIN. WITH GOOD PAIN RELIEF. SPICA NAD MARIA R DRESSING L HIP INTACT, ALEXA PATENT. SCDS, GUILLERMO ALLEN, CRYOCUFF IN PLACE.CALL LIGHT AND FLUIDS AT BEDSIDE
--- NOTE | 2019-03-07 04:34 | NUR ---
WEARING HOME CPAP, L HIP DRESSING IN PLACE. MARIA R DRESSING AND SPICA DRESSING IN PLACE. ALEXA PATENT. PICC LINE PATENT. CALL LIGHTS AND FLUIDS AT BEDSIDE. PT REQUIRES 1PA AND FWW, TOLERATING WELL. CHRISTIANO, GUILLERMO ALLEN, CRYOCUFF IN PLACE.
--- NOTE | 2019-03-07 05:58 | NUR ---
BLOOD DRAW COMPLETE. VS STABLE AND RECORDED. PT DENIES ADDITONAL NEEDS, CALL LIGHT IN REACH. PT APPEARS IN GOOD SPIRITS, NO DISTRESS NOTED. GREESN OKAY LIGHT FROM MARIA R FLASHING.
--- NOTE | 2019-03-07 07:10 | NUR ---
Pt resting supine in bed watching tv. Pt appears to be in no acute distress and denies needs/concerns. Call light and h2o in reach. Bedside report received from PRIYA Perales.
--- NOTE | 2019-03-07 08:00 | NUR ---
PATIENT SITTING UP IN CHAIR. LINENS CHANGED. CRYO FILLED. CALL LIGHT WITHIN REACH. NO OTHER NEEDS AT THIS TIME
--- NOTE | 2019-03-07 09:54 | NUR ---
PATIENT SITTING UP IN CHAIR. VITAL SIGNS AND I&O DONE. PATIENT USED A SHOWER CAP AND CHANGED HER GOWN. CALL LIGHT WITHIN REACH. NO OTHER NEEDS AT THIS TIME
--- NOTE | 2019-03-07 10:31 | NUR ---
PT AMBULATING IN [place] WITH Bret GONZALES. PT IS CHEERFUL AND SEEMED TO BE ABLE TO CONCENTRATE ON AND FOLLOW P.T. INSTRUCTIONS. GAVE ENCOURAGEMENT, PT THANKED ME. WILL FOLLOW NEEDED
--- NOTE | 2019-03-07 10:42 | NUR ---
PT SITTING UP IN CHAIR A/O X4 ASSESSMENT COMPLETED. PT DENIES PAIN SOB OR ANY OTHER SX'S CALL LIGHT AND H20 IN REACH. PT DENIES FURTHER NEEDS/CONCERNS. ALEXA DRAIN EMPTIED OF 10MLS OF SS DRAINAGE. P.T. IN TO ASSIST PATIENT WITH PHYSICAL THERAPY AT THIS TIME.
--- NOTE | 2019-03-07 11:34 | NUR ---
PT RESTING SUPINE IN BED VISITING WITH FAMILY AT BEDSIDE. CALL LIGHT ADN H20 IN REACH. CMS INTACT TO LL FOOT. STOCKINGS, SCD'S CRYO CUFF IN PLACE AND ALEXA DRAIN DRAINING SMALL AMOUNT OF SS DRAINAGE. PT DENIES NEEDS/CONCERNS AT THIS TIME.
--- NOTE | 2019-03-07 13:19 | NUR ---
PATIENT SITTING UP IN CHAIR. VISITORS IN ROOM. VITAL SIGNS AND I&O DONE. CALL LIGHT WITHIN REACH. NO OTHER NEEDS AT THIS TIME
[2019-03-07] MEDS ORDERED: OXYCODONE HCL5 MG PO (14:34)
[2019-03-07] MEDS ORDERED: LEVAQUIN750 MG PO (14:36)
--- NOTE | 2019-03-07 15:49 | NUR ---
PATIENT SITTING UP IN BED. VISITOR IN ROOM. FINAL VITAL SIGNS WERE OBTAINED PRIOR TO DISCHARGE FROM THE UNIT.
== END 2019-03-07 16:15 | disposition home or self-care (01) | DRG 908 ==
LOC: OPS 10:18 → DS 12:00 → OPS 12:00 → MS 13:30 → OPS 13:31 → MS 13:32
PROVIDERS: ADMIT Specialist
PROC: 0J9M0ZZ Drainage of Left Upper Leg Subcutaneous Tissue and Fascia, Open Approach (ICD-10-PCS; principal; 2019-03-05 12:00)
PROC: 02HV33Z Insertion of Infusion Device into Superior Vena Cava, Percutaneous Approach (ICD-10-PCS; 2019-03-05 12:00)
PROC: 5A09357 Assistance with Respiratory Ventilation, Less than 24 Consecutive Hours, Continuous Positive Airway Pressure (ICD-10-PCS; 2019-03-06)
DX: M96.842 Postprocedural seroma of a musculoskeletal structure following a musculoskeletal system procedure (principal); I47.1 Supraventricular tachycardia; Y83.4 Other reconstructive surgery as the cause of abnormal reaction of the patient, or of later complication, without mention of misadventure at the time of the procedure; Y79.2 Prosthetic and other implants, materials and accessory orthopedic devices associated with adverse incidents; Z96.642 Presence of left artificial hip joint; I10 Essential (primary) hypertension; E78.5 Hyperlipidemia, unspecified; G47.33 Obstructive sleep apnea (adult) (pediatric); E03.9 Hypothyroidism, unspecified; G25.81 Restless legs syndrome; F39 Unspecified mood [affective] disorder; Z79.1 Long term (current) use of non-steroidal anti-inflammatories (NSAID); Z79.891 Long term (current) use of opiate analgesic; Z79.899 Other long term (current) drug therapy
CPT/HCPCS: 00400; 36415; 36569; 71045; 76000; 80048; 80053; 80202; 81001; 82310; 82945; 83605; 84075; 84100; 84550; 85025; 85651; 85810; 86038; 86060; 86140; 86431; 87040; 87070; 87075; 87077; 87186; 87205; 89051; 89060; 94762; 97110; 97116; 97162; C1751; J0131; J0690; J1885; J2250; J2704; J3010; J3370; J7060; J7120